=== PATIENT | male | born 1990 | race Hispanic/Latino ===

== ENCOUNTER 2023-01-19 11:25 | Inpatient (IN) | payer OTHER ==
[~2023-01-19] VITALS: Ht 172.7 cm; Wt 60.2 kg
[2023-01-19 12:29] LABS: BASOPHILS % (AUTO) 0.5 % (0.0-5.0); EOSINOPHILS % (AUTO) 0.9 % (0.0-8.0); HEMATOCRIT 32.8 % (42-54); LYMPHOCYTES % (AUTO) 7.8 % (21.0-51.0); MEAN CORPUSCULAR HEMOGLOBIN 30.9 pg (27.0-33.0); MEAN CORPUSCULAR HGB CONC 35.1 g/dL (32.0-36.0); MEAN CORPUSCULAR VOLUME 88.2 fL (79-99); MONOCYTES % (AUTO) 5.1 % (3.0-13.0); NUCLEATED RED BLOOD CELLS 0.1 % (0.0-0.19); PLATELET COUNT (AUTO) 486 K/uL (130-400); RED BLOOD CELL COUNT(AUTO) 3.72 MIL/uL (4.50-6.20); RED CELL DISTRIBUTION WIDTH 14.9 % (11.0-15.5)
[2023-01-19] MEDS ORDERED: ONDANSETRON 4MG INJ IVP ONE ×2 (12:30→15:30)
[2023-01-19] MEDS ORDERED: 0.9%NACL 1000ML 1,000 ML IV ONE (12:30)
[2023-01-19 13:06] LABS: ALANINE AMINOTRANSFERASE 39 U/L (12-78); ALBUMIN 1.7 g/dL (3.5-5.0); ASPARTATE AMINOTRANSFERASE 262 U/L (10-37); CARBON DIOXIDE 35 mmol/L (21-32); CREATININE 0.6 mg/dL (0.5-1.5); GLOMERULAR FILTR. RATE CALC 133 mL/min (>90); GLUCOSE,RANDOM 95 mg/dL (70-105)
[2023-01-19 13:13] LABS: CHLORIDE 96 mmol/L (101-111); POTASSIUM 3.4 mmol/L (3.5-5.1); SODIUM SERUM 137 mmol/L (136-145)
[2023-01-19 13:22] LABS: LIPASE < 50 U/L (114-286)
[2023-01-19 13:24] LABS: UREA NITROGEN, BLOOD 1 mg/dL (7-18)
[2023-01-19] MEDS ORDERED: IOHEXOL 350 MG/ML 100ML INFUS..BTL IV ONE (13:33)
[2023-01-19] MEDS ORDERED: MORPHINE 4 MG SYG IVP ONE (15:30)
[2023-01-19] MEDS ORDERED: POTASSIUM CHLORIDE 20MEQ/100ML 100 ML IV PRN (16:30)
[2023-01-19] MEDS ORDERED: CEFTRIAXONE 1G VIAL 2 GM in 0.9%NACL 100ML 100 ML IV SCH (16:30)
[2023-01-19] MEDS ORDERED: ACETAMINOPHEN 325 MG TAB PO PRN (16:30)
[2023-01-19] MEDS ORDERED: PHARMACY COMMUNICATION MISC PRN (16:30)
[2023-01-19] MEDS ORDERED: PHARMACY COMMUNICATION MISC SCH (16:30)
[2023-01-19 16:54] LABS: INR 1.28 (0.85-1.15); PROTHROMBIN TIME 13.8 SEC (9.6-11.6)
[2023-01-19 16:55] LABS: PARTIAL THROMBOPLASTIN TIME 36.7 SEC (26.3-35.5)
[2023-01-19 17:28] LABS: APPEARANCE,URINE CLEAR (CLEAR); BILIRUBIN,URINE 0.5 mg/dL (NEGATIVE); COLOR,URINE YELLOW (YELLOW); GLUCOSE, URINE (UA) NEGATIVE (NEGATIVE); KETONES,URINE NEGATIVE (NEGATIVE); LEUKOCYTE ESTERASE ,URINE NEGATIVE Leu/uL (NEGATIVE); NITRATE,URINE NEGATIVE (NEGATIVE); OCCULT BLOOD,URINE NEGATIVE (NEGATIVE); PH,URINE 8.5 (5.0-8.0); PROTEIN,URINE 30 mg/dL (NEGATIVE)
[2023-01-19 17:32] LABS: RBC,URINE 0-1 /HPF (0-1); WBC,URINE 0-1 /HPF (0-1)
[2023-01-19] MEDS: METRONIDAZOLE 500MG/100ML BAG 100 ML IV SCH ×2 (17:36→23:36)
[2023-01-19] MEDS: CEFTRIAXONE 2GM VIAL IVPB SCH (17:36)
[2023-01-19] MEDS: 0.9%NACL 1000ML 1,000 ML IV SCH ×2 (17:36→23:37)
[2023-01-19 17:45] LABS: AMPHET/METH SCREEN,URINE NEGATIVE (NEGATIVE); BARBITURATE SCREEN, URINE NEGATIVE (NEGATIVE); BENZODIAZEPINES SCREEN,URINE NEGATIVE (NEGATIVE); CANNABINOID SCREEN,URINE NEGATIVE (NEGATIVE); COCAINE SCREEN,URINE POSITIVE (NEGATIVE); OPIATE SCREEN,URINE POSITIVE (NEGATIVE); PHENCYCLIDINE SCREEN,URINE NEGATIVE (NEGATIVE)
[2023-01-19] MEDS ORDERED: MORPHINE 2 MG SYG IVP STA (19:59)
[2023-01-19] MEDS ORDERED: MORPHINE 2 MG SYG ONE (20:02)
[2023-01-19] MEDS: FAMOTIDINE 20MG VIAL IV SCH (20:21)
[2023-01-19] MEDS ORDERED: 0.9% NACL 500ML IV.SOLN 500 ML IV ONE (20:51)
[2023-01-19 22:50] VITALS: BP 107/73
[2023-01-19] MEDS: CHLORDIAZEPOXIDE HCL 25 MG CAP PO PRN (23:36)
[2023-01-20] VITALS: BP 105/64
[2023-01-20] MEDS: LORAZEPAM 2 MG/ML 1 ML VIAL IVP PRN ×3 (03:08→22:25)
[2023-01-20 04:00] VITALS: BP 97/59
[2023-01-20 07:10] VITALS: BP 99/65
[2023-01-20 08:04] LABS: MEAN CORPUSCULAR HEMOGLOBIN 30.6 pg (27.0-33.0); MEAN CORPUSCULAR HGB CONC 32.9 g/dL (32.0-36.0); MEAN CORPUSCULAR VOLUME 93.1 fL (79-99); NUCLEATED RED BLOOD CELLS 0.2 % (0.0-0.19); RED BLOOD CELL COUNT(AUTO) 3.33 MIL/uL (4.50-6.20); RED CELL DISTRIBUTION WIDTH 15.5 % (11.0-15.5); WHITE BLOOD COUNT (AUTO) 26.5 K/uL (4.8-10.8)
[2023-01-20 08:25] LABS: ALBUMIN 1.4 g/dL (3.5-5.0); CREATININE 0.6 mg/dL (0.5-1.5); MAGNESIUM 1.4 mg/dL (1.80-2.40); POTASSIUM 3.6 mmol/L (3.5-5.1)
[2023-01-20] MEDS ORDERED: KCL 20 MEQ ERTAB PO ONE (09:30)
[2023-01-20] MEDS: METRONIDAZOLE 500MG/100ML BAG 100 ML IV SCH ×3 (10:34→23:28)
[2023-01-20] MEDS: FAMOTIDINE 20MG VIAL IV SCH ×2 (10:35→20:03)
[2023-01-20] MEDS: FLUCONAZOLE 200 MG/NS 100 ML 100 ML IV SCH (10:35)
[2023-01-20] MEDS: MAGNESIUM 2GM PREMIX 50ML 50 ML IV SCH (10:40)
[2023-01-20 11:10] VITALS: BP 108/70
[2023-01-20] MEDS: CHLORDIAZEPOXIDE HCL 25 MG CAP PO PRN (13:01)
[2023-01-20] MEDS: MORPHINE 2 MG SYG IVP PRN (13:02)
[2023-01-20] MEDS: 0.9%NACL 1000ML 1,000 ML IV SCH ×2 (13:03→20:03)
[2023-01-20 15:10] VITALS: BP 106/69
[2023-01-20] MEDS: CEFTRIAXONE 2GM VIAL IVPB SCH (17:29)
[2023-01-20 20:00] VITALS: BP 107/68
[2023-01-21 00:01] VITALS: BP 106/71
[2023-01-21 04:00] VITALS: BP 107/71
[2023-01-21 04:42] LABS: HEMATOCRIT 31.4 % (42-54); MEAN CORPUSCULAR HEMOGLOBIN 30.5 pg (27.0-33.0); MEAN CORPUSCULAR HGB CONC 33.4 g/dL (32.0-36.0); MEAN CORPUSCULAR VOLUME 91.3 fL (79-99); NUCLEATED RED BLOOD CELLS 0.3 % (0.0-0.19); RED BLOOD CELL COUNT(AUTO) 3.44 MIL/uL (4.50-6.20); RED CELL DISTRIBUTION WIDTH 15.6 % (11.0-15.5); WHITE BLOOD COUNT (AUTO) 25.9 K/uL (4.8-10.8)
[2023-01-21 05:01] LABS: ALBUMIN 1.4 g/dL (3.5-5.0); BILIRUBIN,DIRECT 1.6 mg/dL (0.0-0.3); CREATININE 0.6 mg/dL (0.5-1.5); MAGNESIUM 1.9 mg/dL (1.80-2.40); TOTAL PROTEIN, SERUM 6.1 g/dL (6.0-8.3)
[2023-01-21 07:10] VITALS: BP 100/63
[2023-01-21] MEDS: FAMOTIDINE 20MG VIAL IV SCH ×2 (08:19→19:42)
[2023-01-21] MEDS: 0.9%NACL 1000ML 1,000 ML IV SCH ×2 (08:19→19:43)
[2023-01-21] MEDS: FLUCONAZOLE 200 MG/NS 100 ML 100 ML IV SCH (08:19)
[2023-01-21] MEDS: METRONIDAZOLE 500MG/100ML BAG 100 ML IV SCH (08:19)
[2023-01-21 11:10] VITALS: BP 111/65
[2023-01-21 15:25] VITALS: BP 109/61
[2023-01-21] MEDS: MEROPENEM 500 MG VIAL IVPB SCH ×2 (16:00→22:05)
[2023-01-21] MEDS: ONDANSETRON 4MG INJ IV PRN (16:46)
[2023-01-21 20:00] VITALS: BP 105/67
[2023-01-21] MEDS: MORPHINE 2 MG SYG IVP PRN (20:46)
[2023-01-21] MEDS: LORAZEPAM 2 MG/ML 1 ML VIAL IVP PRN (22:05)
[2023-01-22] VITALS: BP 90/60
[2023-01-22 04:00] VITALS: BP 101/72
[2023-01-22] MEDS: 0.9%NACL 1000ML 1,000 ML IV SCH ×2 (04:03→15:47)
[2023-01-22] MEDS: LORAZEPAM 2 MG/ML 1 ML VIAL IVP PRN (04:03)
[2023-01-22 04:44] LABS: HEMATOCRIT 30.5 % (42-54); MEAN CORPUSCULAR HEMOGLOBIN 30.6 pg (27.0-33.0); MEAN CORPUSCULAR HGB CONC 33.4 g/dL (32.0-36.0); MEAN CORPUSCULAR VOLUME 91.6 fL (79-99); NUCLEATED RED BLOOD CELLS 0.4 % (0.0-0.19); RED BLOOD CELL COUNT(AUTO) 3.33 MIL/uL (4.50-6.20); RED CELL DISTRIBUTION WIDTH 15.8 % (11.0-15.5); WHITE BLOOD COUNT (AUTO) 25.1 K/uL (4.8-10.8)
[2023-01-22 05:07] LABS: ALBUMIN 1.4 g/dL (3.5-5.0); CREATININE 0.6 mg/dL (0.5-1.5); MAGNESIUM 1.8 mg/dL (1.80-2.40); POTASSIUM 3.9 mmol/L (3.5-5.1); TOTAL PROTEIN, SERUM 5.8 g/dL (6.0-8.3)
[2023-01-22] MEDS: MEROPENEM 500 MG VIAL IVPB SCH ×3 (06:05→23:16)
[2023-01-22 07:05] VITALS: BP 97/56
[2023-01-22 08:17] LABS: INR 1.51 (0.85-1.15); PROTHROMBIN TIME 16.1 SEC (9.6-11.6)
[2023-01-22 08:19] LABS: PARTIAL THROMBOPLASTIN TIME 36.2 SEC (26.3-35.5)
[2023-01-22] MEDS: FLUCONAZOLE 200 MG/NS 100 ML 100 ML IV SCH (08:19)
[2023-01-22] MEDS: FAMOTIDINE 20MG VIAL IV SCH ×2 (08:19→20:30)
[2023-01-22] MEDS: MAGNESIUM 2GM PREMIX 50ML 50 ML IV SCH (09:11)
[2023-01-22 11:00] VITALS: BP 100/66
[2023-01-22 15:00] VITALS: BP 96/64
[2023-01-22] MEDS: MORPHINE 2 MG SYG IVP PRN (19:37)
[2023-01-22 20:00] VITALS: BP 112/72
[2023-01-22] MEDS: CHLORDIAZEPOXIDE HCL 25 MG CAP PO PRN (20:37)
[2023-01-23] VITALS: BP 89/58
[2023-01-23] MEDS: CHLORDIAZEPOXIDE HCL 25 MG CAP PO PRN ×3 (00:11→21:17)
[2023-01-23] MEDS: 0.9%NACL 1000ML 1,000 ML IV SCH ×3 (03:07→21:09)
[2023-01-23 04:00] VITALS: BP 114/70
[2023-01-23] MEDS: MEROPENEM 500 MG VIAL IVPB SCH ×3 (07:24→22:31)
[2023-01-23 08:00] VITALS: BP 109/71
[2023-01-23] MEDS: FAMOTIDINE 20MG VIAL IV SCH ×2 (08:30→20:23)
[2023-01-23] MEDS: MORPHINE 2 MG SYG IVP PRN ×2 (08:30→19:37)
[2023-01-23] MEDS: FLUCONAZOLE 200 MG/NS 100 ML 100 ML IV SCH (08:30)
[2023-01-23 11:51] VITALS: BP 103/64
[2023-01-23 16:00] VITALS: BP 110/70
[2023-01-23 20:00] VITALS: BP 120/77
[2023-01-24] VITALS: BP 99/60
[2023-01-24 04:05] VITALS: BP 101/66
[2023-01-24 04:55] LABS: BASOPHILS % (AUTO) 0.7 % (0.0-5.0); EOSINOPHILS % (AUTO) 2.9 % (0.0-8.0); HEMATOCRIT 32.2 % (42-54); LYMPHOCYTES % (AUTO) 12.6 % (21.0-51.0); MEAN CORPUSCULAR HEMOGLOBIN 30.2 pg (27.0-33.0); MEAN CORPUSCULAR HGB CONC 33.2 g/dL (32.0-36.0); MONOCYTES % (AUTO) 8.3 % (3.0-13.0); NEUTROPHILS % (AUTO) 74.6 % (40.0-77.0); NUCLEATED RED BLOOD CELLS 0.2 % (0.0-0.19); PLATELET COUNT (AUTO) 547 K/uL (130-400); RED BLOOD CELL COUNT(AUTO) 3.54 MIL/uL (4.50-6.20); RED CELL DISTRIBUTION WIDTH 15.8 % (11.0-15.5); WHITE BLOOD COUNT (AUTO) 24.8 K/uL (4.8-10.8)
[2023-01-24 05:24] LABS: ALANINE AMINOTRANSFERASE 27 U/L (12-78); ALBUMIN 1.4 g/dL (3.5-5.0); ASPARTATE AMINOTRANSFERASE 152 U/L (10-37); CARBON DIOXIDE 21 mmol/L (21-32); CHLORIDE 106 mmol/L (101-111); CREATININE 0.6 mg/dL (0.5-1.5); GLOMERULAR FILTR. RATE CALC 133 mL/min (>90); GLUCOSE,RANDOM 84 mg/dL (70-105); PHOSPHORUS 3.3 mg/dL (2.5-4.9); POTASSIUM 3.8 mmol/L (3.5-5.1); SODIUM SERUM 136 mmol/L (136-145); TOTAL PROTEIN, SERUM 5.9 g/dL (6.0-8.3); UREA NITROGEN, BLOOD 2 mg/dL (7-18)
[2023-01-24 05:29] LABS: LIPASE < 50 U/L (114-286)
[2023-01-24] MEDS: 0.9%NACL 1000ML 1,000 ML IV SCH (05:35)
[2023-01-24] MEDS: MAGNESIUM 2GM PREMIX 50ML 50 ML IV SCH (05:38)
[2023-01-24] MEDS: MEROPENEM 500 MG VIAL IVPB SCH ×3 (07:20→23:26)
[2023-01-24 08:00] VITALS: BP 122/75
[2023-01-24] MEDS ORDERED: KCL 20 MEQ ERTAB PO ONE ×2 (08:32→11:31)
[2023-01-24] MEDS: FAMOTIDINE 20MG VIAL IV SCH ×2 (08:35→20:46)
[2023-01-24] MEDS: FLUCONAZOLE 200 MG/NS 100 ML 100 ML IV SCH (08:35)
[2023-01-24] MEDS: MORPHINE 2 MG SYG IVP PRN ×2 (08:36→18:42)
[2023-01-24] MEDS: CHLORDIAZEPOXIDE HCL 25 MG CAP PO PRN ×4 (09:01→20:46)
[2023-01-24] MEDS ORDERED: FUROSEMIDE 40MG VIAL IV ONE (11:00)
[2023-01-24] MEDS ORDERED: GUAIFENESIN/DEXTROMETHORPHAN 1 EACH TAB.SR.12H PO PRN (11:00)
[2023-01-24] MEDS: ACETAMINOPHEN 325 MG TAB PO PRN (11:29)
[2023-01-24] MEDS: BENZONATATE 100 MG CAPSULE PO PRN (11:29)
[2023-01-24 12:00] VITALS: BP 119/78
[2023-01-24] MEDS ORDERED: PHARMACY COMMUNICATION MISC SCH (12:00)
[2023-01-24] MEDS ORDERED: ALBUMIN (HUMAN) 25% 50 ML IV SCH (13:00)
[2023-01-24 16:00] VITALS: BP 125/71
[2023-01-24 20:00] VITALS: BP 104/78
[2023-01-25] VITALS (14 sets, daily range): BP systolic 99–151; BP diastolic 58–85
[2023-01-25 04:58] LABS: BASOPHILS % (AUTO) 0.7 % (0.0-5.0); EOSINOPHILS % (AUTO) 2.9 % (0.0-8.0); HEMATOCRIT 31.7 % (42-54); LYMPHOCYTES % (AUTO) 14.5 % (21.0-51.0); MEAN CORPUSCULAR HEMOGLOBIN 30.7 pg (27.0-33.0); MEAN CORPUSCULAR HGB CONC 33.8 g/dL (32.0-36.0); MEAN CORPUSCULAR VOLUME 91.1 fL (79-99); MONOCYTES % (AUTO) 9.7 % (3.0-13.0); NEUTROPHILS % (AUTO) 71.5 % (40.0-77.0); NUCLEATED RED BLOOD CELLS 0.1 % (0.0-0.19); PLATELET COUNT (AUTO) 601 K/uL (130-400); RED BLOOD CELL COUNT(AUTO) 3.48 MIL/uL (4.50-6.20)
[2023-01-25 05:14] LABS: ALBUMIN 1.6 g/dL (3.5-5.0); CREATININE 0.5 mg/dL (0.5-1.5); POTASSIUM 3.8 mmol/L (3.5-5.1); TOTAL PROTEIN, SERUM 6.4 g/dL (6.0-8.3)
[2023-01-25] MEDS: MEROPENEM 500 MG VIAL IVPB SCH ×3 (06:16→21:24)
[2023-01-25] MEDS: FAMOTIDINE 20MG VIAL IV SCH ×2 (09:19→21:17)
[2023-01-25] MEDS: MORPHINE 2 MG SYG IVP PRN (09:20)
[2023-01-25] MEDS: MAGNESIUM 2GM PREMIX 50ML 50 ML IV SCH (09:20)
[2023-01-25] MEDS: FLUCONAZOLE 200 MG/NS 100 ML 100 ML IV SCH (09:20)
[2023-01-25] MEDS: CHLORDIAZEPOXIDE HCL 25 MG CAP PO PRN (13:24)
[2023-01-25 13:34] LABS: BODY FLUID RBC 0 /cu. mm.; BODY FLUID WBC 308 /cu. mm.
[2023-01-25 13:49] LABS: APPEARANCE BODY FLUID CLEAR (CLEAR); COLOR,BODY FLUID YELLOW (LT YELLOW); SPECIMENTYPE,BODY FLUID ASCITES; TOTAL VOLUME,BODY FLUID 3100 mL
[2023-01-25] MEDS: ACETAMINOPHEN 325 MG TAB PO PRN (14:15)
[2023-01-25 15:31] LABS: BF LYMPHOCYTE 15 %
[2023-01-25] MEDS ORDERED: KCL 20 MEQ ERTAB PO ONE (16:46)
[2023-01-25] MEDS: LORAZEPAM 2 MG/ML 1 ML VIAL IVP PRN (21:23)
[2023-01-26] VITALS (7 sets, daily range): BP systolic 100–115; BP diastolic 57–67
[2023-01-26] MEDS: CHLORDIAZEPOXIDE HCL 25 MG CAP PO PRN (05:05)
[2023-01-26 05:07] LABS: BASOPHILS % (AUTO) 0.7 % (0.0-5.0); EOSINOPHILS % (AUTO) 2.5 % (0.0-8.0); HEMATOCRIT 31.5 % (42-54); LYMPHOCYTES % (AUTO) 13.6 % (21.0-51.0); MEAN CORPUSCULAR HEMOGLOBIN 30.8 pg (27.0-33.0); MEAN CORPUSCULAR HGB CONC 33.7 g/dL (32.0-36.0); MEAN CORPUSCULAR VOLUME 91.6 fL (79-99); MONOCYTES % (AUTO) 8.8 % (3.0-13.0); NEUTROPHILS % (AUTO) 73.8 % (40.0-77.0); NUCLEATED RED BLOOD CELLS 0.1 % (0.0-0.19); PLATELET COUNT (AUTO) 643 K/uL (130-400); RED BLOOD CELL COUNT(AUTO) 3.44 MIL/uL (4.50-6.20); RED CELL DISTRIBUTION WIDTH 16.1 % (11.0-15.5); WHITE BLOOD COUNT (AUTO) 25.4 K/uL (4.8-10.8)
[2023-01-26 05:32] LABS: ALBUMIN 1.4 g/dL (3.5-5.0); CREATININE 0.6 mg/dL (0.5-1.5); POTASSIUM 4.1 mmol/L (3.5-5.1); TOTAL PROTEIN, SERUM 5.9 g/dL (6.0-8.3)
[2023-01-26] MEDS: MEROPENEM 500 MG VIAL IVPB SCH ×3 (06:40→22:49)
[2023-01-26] MEDS: FLUCONAZOLE 200 MG/NS 100 ML 100 ML IV SCH (08:44)
[2023-01-26] MEDS: FAMOTIDINE 20MG VIAL IV SCH ×2 (08:44→21:07)
[2023-01-26] MEDS: ACETAMINOPHEN 325 MG TAB PO PRN (09:54)
[2023-01-26 13:34] LABS: INR 1.34 (0.85-1.15); PROTHROMBIN TIME 14.4 SEC (9.6-11.6)
[2023-01-27] VITALS (32 sets, daily range): BP systolic 95–127; BP diastolic 57–92
[2023-01-27 05:58] LABS: INR 1.32 (0.85-1.15); PROTHROMBIN TIME 14.2 SEC (9.6-11.6)
[2023-01-27] MEDS: MEROPENEM 500 MG VIAL IVPB SCH ×3 (06:43→22:50)
[2023-01-27] MEDS: FAMOTIDINE 20MG VIAL IV SCH ×2 (09:04→20:00)
[2023-01-27] MEDS: FLUCONAZOLE 200 MG/NS 100 ML 100 ML IV SCH (09:04)
[2023-01-27] MEDS ORDERED: INDOCYANINE GREEN 25 MG VIAL IJ ONE (13:09)
[2023-01-27] MEDS ORDERED: LIDOCAINE PF 100MG/5ML (2%) SYRINGE 5ML ONE (14:13)
[2023-01-27] MEDS ORDERED: FENTANYL CITRATE PF 50 MCG/1 ML 5ML AMP IV ONE (14:16)
[2023-01-27] MEDS ORDERED: MIDAZOLAM HCL 1 MG/ML 2ML VIAL ONE (14:16)
[2023-01-27] MEDS ORDERED: ROCURONIUM 10MG/1ML SYR 10 MG/ML ML ONE ×2 (14:16→15:09)
[2023-01-27] MEDS ORDERED: PROPOFOL 10 MG/ML 20ML VIAL IV ONE (14:16)
[2023-01-27] MEDS ORDERED: ROPIVACAINE 0.5% 5MG/ML 30ML IJ ONE ×2 (14:38→14:40)
[2023-01-27] MEDS ORDERED: MEROPENEM 500 MG VIAL IVPB ONE (15:00)
[2023-01-27] MEDS ORDERED: DEXAMETHASONE SOD PHOSPHATE 10MG/ML 1ML VIAL ONE (15:09)
[2023-01-27] MEDS ORDERED: ONDANSETRON 4MG INJ ONE (15:09)
[2023-01-27] MEDS ORDERED: ALBUMIN (HUMAN) 5% 500 ML IV ONE (15:32)
[2023-01-27] MEDS ORDERED: NEOSTIGMINE 5MG/5ML SYR IV ONE (16:19)
[2023-01-27] MEDS ORDERED: GLYCOPYRROLATE 1 MG/5 ML SYRINGE ONE (16:19)
[2023-01-27] MEDS ORDERED: SUGAMMADEX SODIUM 200 MG/2 ML VIAL IV ONE (16:26)
[2023-01-27] MEDS ORDERED: MEPERIDINE-PF 25 MG/ML SYG ONE (17:25)
[2023-01-27] MEDS: ONDANSETRON 4MG INJ IV PRN (17:30)
[2023-01-27] MEDS ORDERED: FENTANYL CITRATE PF 50 MCG/1 ML 2ML VIAL ONE (17:33)
[2023-01-27] MEDS ORDERED: FUROSEMIDE 40MG VIAL IV ONE (19:30)
[2023-01-27] MEDS: TRAMADOL HCL 50 MG TABLET PO SCH (20:01)
[2023-01-27] MEDS: DOCUSATE SODIUM 100 MG CAP PO SCH (20:03)
[2023-01-27] MEDS: MORPHINE 4 MG SYG IVP PRN (20:04)
[2023-01-27] MEDS: GABAPENTIN 100 MG CAPSULE PO SCH (20:04)
[2023-01-28] VITALS (8 sets, daily range): BP systolic 103–121; BP diastolic 71–80
[2023-01-28] MEDS: TRAMADOL HCL 50 MG TABLET PO SCH ×5 (00:47→23:04)
[2023-01-28] MEDS: ONDANSETRON 4MG INJ IV PRN (03:13)
[2023-01-28] MEDS: MORPHINE 4 MG SYG IVP PRN ×3 (03:13→23:06)
[2023-01-28 06:15] LABS: ALBUMIN 1.9 g/dL (3.5-5.0); CREATININE 0.6 mg/dL (0.5-1.5); MAGNESIUM 1.6 mg/dL (1.80-2.40); PHOSPHORUS 5.8 mg/dL (2.5-4.9); POTASSIUM 4.9 mmol/L (3.5-5.1); TOTAL PROTEIN, SERUM 7.1 g/dL (6.0-8.3)
[2023-01-28] MEDS: MEROPENEM 500 MG VIAL IVPB SCH ×3 (06:15→23:03)
[2023-01-28 06:45] LABS: BASOPHILS % (AUTO) 0.2 % (0.0-5.0); HEMATOCRIT 34.1 % (42-54); LYMPHOCYTES % (AUTO) 6.3 % (21.0-51.0); MEAN CORPUSCULAR HEMOGLOBIN 30.8 pg (27.0-33.0); MEAN CORPUSCULAR HGB CONC 33.7 g/dL (32.0-36.0); MEAN CORPUSCULAR VOLUME 91.4 fL (79-99); MONOCYTES % (AUTO) 3.6 % (3.0-13.0); RED BLOOD CELL COUNT(AUTO) 3.73 MIL/uL (4.50-6.20)
[2023-01-28 06:53] LABS: WHITE BLOOD COUNT (AUTO) 37.2 K/uL (4.8-10.8)
[2023-01-28 06:54] LABS: PLATELET COUNT (AUTO) 954 K/uL (130-400)
[2023-01-28] MEDS: DOCUSATE SODIUM 100 MG CAP PO SCH ×3 (08:57→20:05)
[2023-01-28] MEDS: FAMOTIDINE 20MG VIAL IV SCH ×2 (08:59→20:05)
[2023-01-28] MEDS: GABAPENTIN 100 MG CAPSULE PO SCH ×3 (08:59→20:05)
[2023-01-28] MEDS: FLUCONAZOLE 200 MG/NS 100 ML 100 ML IV SCH (08:59)
[2023-01-28 09:58] LABS: BAND NEUTROPHILS % (MANUAL) 3 % (0-2); LYMPHOCYTES % (MANUAL) 5 % (22-44); MAN.DIFF COMMENT-IMPRESSION MANUAL DIFFERENTIAL; MONOCYTES % (MANUAL) 6 % (2-9); PLATELET MORPHOLOGY COMMENT ADEQUATE; REACTIVE LYMPHOCYTES 1 % (0-0); SEGMENTED NEUTROPHILS % 85 % (40-70)
[2023-01-28] MEDS: MAGNESIUM 2GM PREMIX 50ML 50 ML IV SCH (12:06)
[2023-01-29 04:00] VITALS: BP 102/73
[2023-01-29 04:44] LABS: BASOPHILS % (AUTO) 0.2 % (0.0-5.0); EOSINOPHILS % (AUTO) 0.1 % (0.0-8.0); LYMPHOCYTES % (AUTO) 7.1 % (21.0-51.0); MEAN CORPUSCULAR HEMOGLOBIN 30.9 pg (27.0-33.0); MEAN CORPUSCULAR HGB CONC 33.5 g/dL (32.0-36.0); MONOCYTES % (AUTO) 4.3 % (3.0-13.0); NEUTROPHILS % (AUTO) 87.2 % (40.0-77.0); NUCLEATED RED BLOOD CELLS 0.1 % (0.0-0.19); RED BLOOD CELL COUNT(AUTO) 3.37 MIL/uL (4.50-6.20); RED CELL DISTRIBUTION WIDTH 15.8 % (11.0-15.5)
[2023-01-29 04:48] LABS: PLATELET COUNT (AUTO) 913 K/uL (130-400)
[2023-01-29 05:09] LABS: ALBUMIN 1.9 g/dL (3.5-5.0); CREATININE 0.6 mg/dL (0.5-1.5); POTASSIUM 4.2 mmol/L (3.5-5.1); TOTAL PROTEIN, SERUM 6.9 g/dL (6.0-8.3)
[2023-01-29] MEDS: MEROPENEM 500 MG VIAL IVPB SCH ×3 (06:09→22:50)
[2023-01-29] MEDS: TRAMADOL HCL 50 MG TABLET PO SCH ×3 (06:09→18:19)
[2023-01-29 08:00] VITALS: BP 108/78
[2023-01-29] MEDS ORDERED: VANCOMYCIN PROTOCOL PER PHARMACY IV SCH (08:00)
[2023-01-29] MEDS ORDERED: VANCOMYCIN 1G/250ML KIT 250 ML IV SCH (08:19)
[2023-01-29] MEDS: FAMOTIDINE 20MG VIAL IV SCH ×2 (10:17→20:22)
[2023-01-29] MEDS: DOCUSATE SODIUM 100 MG CAP PO SCH ×3 (10:17→20:22)
[2023-01-29] MEDS: GABAPENTIN 100 MG CAPSULE PO SCH ×3 (10:17→20:22)
[2023-01-29] MEDS ORDERED: PHARMACY COMMUNICATION MISC SCH ×2 (11:30→15:30)
[2023-01-29 11:55] VITALS: BP 107/74
[2023-01-29] MEDS ORDERED: LACTATED RINGERS 1000ML 1,000 ML IV SCH ×2 (14:50→15:00)
[2023-01-29] MEDS ORDERED: ALBUMIN (HUMAN) 5% 250 ML IV ONE (15:00)
[2023-01-29 16:00] VITALS: BP 110/65
[2023-01-29 19:00] VITALS: BP 119/61
[2023-01-29] MEDS: VANCOMYCIN 1G/250ML KIT 250 ML IV SCH (20:21)
[2023-01-29 23:00] VITALS: BP 103/60
[2023-01-30] MEDS: TRAMADOL HCL 50 MG TABLET PO SCH ×3 (00:22→12:30)
[2023-01-30 04:04] LABS: BASOPHILS % (AUTO) 0.6 % (0.0-5.0); EOSINOPHILS % (AUTO) 1.1 % (0.0-8.0); MEAN CORPUSCULAR HEMOGLOBIN 30.9 pg (27.0-33.0); MEAN CORPUSCULAR HGB CONC 34.1 g/dL (32.0-36.0); MEAN CORPUSCULAR VOLUME 90.6 fL (79-99); MONOCYTES % (AUTO) 4.3 % (3.0-13.0); NEUTROPHILS % (AUTO) 82.1 % (40.0-77.0); NUCLEATED RED BLOOD CELLS 0.1 % (0.0-0.19); RED BLOOD CELL COUNT(AUTO) 2.98 MIL/uL (4.50-6.20); RED CELL DISTRIBUTION WIDTH 15.4 % (11.0-15.5)
[2023-01-30 04:11] LABS: PLATELET COUNT (AUTO) 840 K/uL (130-400); WHITE BLOOD COUNT (AUTO) 42.2 K/uL (4.8-10.8)
[2023-01-30] MEDS: VANCOMYCIN 1G/250ML KIT 250 ML IV SCH ×3 (04:21→21:51)
[2023-01-30 04:26] LABS: ALBUMIN 1.7 g/dL (3.5-5.0); CREATININE 0.6 mg/dL (0.5-1.5); POTASSIUM 4.2 mmol/L (3.5-5.1); TOTAL PROTEIN, SERUM 6.3 g/dL (6.0-8.3)
[2023-01-30 04:52] LABS: BASOPHILS % (MANUAL) 1 % (0-2); EOSINOPHILS % (MANUAL) 3 % (1-6); LYMPHOCYTES % (MANUAL) 11 % (22-44); MAN.DIFF COMMENT-IMPRESSION MANUAL DIFFERENTIAL; MONOCYTES % (MANUAL) 5 % (2-9); PLATELET MORPHOLOGY COMMENT INCREASED; SEGMENTED NEUTROPHILS % 80 % (40-70)
[2023-01-30] MEDS: MEROPENEM 500 MG VIAL IVPB SCH ×3 (06:09→21:49)
[2023-01-30 08:00] VITALS: BP 104/70
[2023-01-30] MEDS: FAMOTIDINE 20MG VIAL IV SCH ×2 (10:32→21:48)
[2023-01-30] MEDS: MORPHINE 4 MG SYG IVP PRN (10:40)
[2023-01-30 12:00] VITALS: BP 99/70
[2023-01-30] MEDS: DOCUSATE SODIUM 100 MG CAP PO SCH ×2 (14:40→21:48)
[2023-01-30] MEDS: GABAPENTIN 100 MG CAPSULE PO SCH ×2 (14:41→21:48)
[2023-01-30 16:00] VITALS: BP 106/67
[2023-01-30 20:19] VITALS: BP 102/71
[2023-01-30] MEDS ORDERED: PHARMACY COMMUNICATION MISC SCH (21:00)
[2023-01-30] MEDS ORDERED: IRON SUCROSE COMPLEX 300 MG in 0.9% NACL 250ML 250 ML IV ONE (21:00)
[2023-01-30] MEDS: TRAMADOL HCL 50 MG TABLET PO PRN (21:49)
[2023-01-30] MEDS: IRON SUCROSE COMPLEX 100 MG/5 ML VIAL IVP SCH (21:51)
[2023-01-31] VITALS (7 sets, daily range): BP systolic 101–119; BP diastolic 66–82
[2023-01-31 05:03] LABS: HEMATOCRIT 31.6 % (42-54); MEAN CORPUSCULAR HEMOGLOBIN 30.1 pg (27.0-33.0); MEAN CORPUSCULAR HGB CONC 32.9 g/dL (32.0-36.0); MEAN CORPUSCULAR VOLUME 91.6 fL (79-99); NUCLEATED RED BLOOD CELLS 0.1 % (0.0-0.19); RED BLOOD CELL COUNT(AUTO) 3.45 MIL/uL (4.50-6.20); RED CELL DISTRIBUTION WIDTH 15.2 % (11.0-15.5)
[2023-01-31 05:05] LABS: PLATELET COUNT (AUTO) 787 K/uL (130-400); WHITE BLOOD COUNT (AUTO) 31.8 K/uL (4.8-10.8)
[2023-01-31] MEDS: TRAMADOL HCL 50 MG TABLET PO PRN ×3 (05:06→21:47)
[2023-01-31] MEDS: VANCOMYCIN 1G/250ML KIT 250 ML IV SCH ×3 (05:13→23:26)
[2023-01-31 05:23] LABS: INR 1.3 (0.85-1.15)
[2023-01-31 05:27] LABS: BAND NEUTROPHILS % (MANUAL) 1 % (0-2); BASOPHILS % (MANUAL) 3 % (0-2); LYMPHOCYTES % (MANUAL) 8 % (22-44); MAN.DIFF COMMENT-IMPRESSION MANUAL DIFFERENTIAL; MONOCYTES % (MANUAL) 2 % (2-9); SEGMENTED NEUTROPHILS % 86 % (40-70)
[2023-01-31 05:28] LABS: ALBUMIN 1.6 g/dL (3.5-5.0); BILIRUBIN,DIRECT 2.5 mg/dL (0.0-0.3); CREATININE 0.6 mg/dL (0.5-1.5); MAGNESIUM 1.5 mg/dL (1.80-2.40); POTASSIUM 3.9 mmol/L (3.5-5.1); TOTAL PROTEIN, SERUM 6.4 g/dL (6.0-8.3)
[2023-01-31] MEDS: FAMOTIDINE 20MG VIAL IV SCH ×2 (09:59→21:06)
[2023-01-31] MEDS: LACTULOSE 20 GM/30 ML UDCUP PO PRN (10:00)
[2023-01-31] MEDS: GABAPENTIN 100 MG CAPSULE PO SCH ×2 (14:00→21:47)
[2023-01-31] MEDS: MEROPENEM 500 MG VIAL IVPB SCH ×2 (15:12→21:11)
[2023-01-31] MEDS: DOCUSATE SODIUM 100 MG CAP PO SCH ×2 (15:13→21:46)
[2023-01-31] MEDS: IRON SUCROSE COMPLEX 100 MG/5 ML VIAL IVP SCH (21:06)
[2023-02-01 04:38] VITALS: BP 105/72
[2023-02-01] MEDS: VANCOMYCIN 1G/250ML KIT 250 ML IV SCH ×3 (05:46→21:03)
[2023-02-01] MEDS: DOCUSATE SODIUM 100 MG CAP PO SCH ×3 (05:47→19:41)
[2023-02-01] MEDS: GABAPENTIN 100 MG CAPSULE PO SCH ×3 (05:47→19:41)
[2023-02-01] MEDS: MEROPENEM 500 MG VIAL IVPB SCH ×3 (05:47→20:59)
[2023-02-01 08:00] VITALS: BP 105/70
[2023-02-01 08:17] LABS: BASOPHILS % (AUTO) 0.5 % (0.0-5.0); EOSINOPHILS % (AUTO) 2.7 % (0.0-8.0); HEMATOCRIT 31.3 % (42-54); LYMPHOCYTES % (AUTO) 13.1 % (21.0-51.0); MEAN CORPUSCULAR HEMOGLOBIN 30.2 pg (27.0-33.0); MEAN CORPUSCULAR HGB CONC 32.9 g/dL (32.0-36.0); MEAN CORPUSCULAR VOLUME 91.8 fL (79-99); MONOCYTES % (AUTO) 5.5 % (3.0-13.0); NEUTROPHILS % (AUTO) 77.6 % (40.0-77.0); NUCLEATED RED BLOOD CELLS 0.2 % (0.0-0.19); RED BLOOD CELL COUNT(AUTO) 3.41 MIL/uL (4.50-6.20); RED CELL DISTRIBUTION WIDTH 15.3 % (11.0-15.5)
[2023-02-01 08:25] LABS: CREATININE 0.6 mg/dL (0.5-1.5); POTASSIUM 4.1 mmol/L (3.5-5.1)
[2023-02-01 08:29] LABS: ALBUMIN 1.8 g/dL (3.5-5.0); TOTAL PROTEIN, SERUM 6.6 g/dL (6.0-8.3)
[2023-02-01 08:31] LABS: PLATELET COUNT (AUTO) 977 K/uL (130-400); WHITE BLOOD COUNT (AUTO) 31.4 K/uL (4.8-10.8)
[2023-02-01 09:09] LABS: BAND NEUTROPHILS % (MANUAL) 3 % (0-2); BASOPHILS % (MANUAL) 3 % (0-2); EOSINOPHILS % (MANUAL) 3 % (1-6); LYMPHOCYTES % (MANUAL) 17 % (22-44); MONOCYTES % (MANUAL) 3 % (2-9); SEGMENTED NEUTROPHILS % 71 % (40-70)
[2023-02-01 09:10] LABS: MAN.DIFF COMMENT-IMPRESSION MANUAL DIFFERENTIAL; PLATELET MORPHOLOGY COMMENT MARKED INCREASE
[2023-02-01] MEDS: TRAMADOL HCL 50 MG TABLET PO PRN ×2 (09:34→15:18)
[2023-02-01] MEDS: FAMOTIDINE 20MG VIAL IV SCH ×2 (09:34→19:41)
[2023-02-01 12:00] VITALS: BP 100/65
[2023-02-01] MEDS: FLUCONAZOLE 100 MG TAB PO SCH (15:13)
[2023-02-01 16:00] VITALS: BP 103/63
[2023-02-01] MEDS: MORPHINE 4 MG SYG IVP PRN (19:42)
[2023-02-01 20:00] VITALS: BP 105/67
[2023-02-01] MEDS: IRON SUCROSE COMPLEX 100 MG/5 ML VIAL IVP SCH (21:03)
[2023-02-02] VITALS: BP 92/56
[2023-02-02] MEDS: VANCOMYCIN 1G/250ML KIT 250 ML IV SCH ×3 (03:55→20:14)
[2023-02-02 04:00] VITALS: BP 102/66
[2023-02-02] MEDS: DOCUSATE SODIUM 100 MG CAP PO SCH ×3 (05:54→20:43)
[2023-02-02] MEDS: GABAPENTIN 100 MG CAPSULE PO SCH ×3 (05:54→20:43)
[2023-02-02] MEDS: MEROPENEM 500 MG VIAL IVPB SCH ×3 (05:54→20:54)
[2023-02-02 08:13] LABS: BASOPHILS % (AUTO) 0.5 % (0.0-5.0); EOSINOPHILS % (AUTO) 2.8 % (0.0-8.0); LYMPHOCYTES % (AUTO) 12.7 % (21.0-51.0); MEAN CORPUSCULAR HEMOGLOBIN 31.2 pg (27.0-33.0); MEAN CORPUSCULAR HGB CONC 33.9 g/dL (32.0-36.0); MONOCYTES % (AUTO) 5.7 % (3.0-13.0); NEUTROPHILS % (AUTO) 77.3 % (40.0-77.0); NUCLEATED RED BLOOD CELLS 0.8 % (0.0-0.19); RED BLOOD CELL COUNT(AUTO) 3.37 MIL/uL (4.50-6.20); RED CELL DISTRIBUTION WIDTH 15.7 % (11.0-15.5)
[2023-02-02 08:25] LABS: PLATELET COUNT (AUTO) 990 K/uL (130-400); WHITE BLOOD COUNT (AUTO) 34.2 K/uL (4.8-10.8)
[2023-02-02 08:31] LABS: ALBUMIN 1.6 g/dL (3.5-5.0); CREATININE 0.5 mg/dL (0.5-1.5); TOTAL PROTEIN, SERUM 6.2 g/dL (6.0-8.3)
[2023-02-02 09:10] LABS: BAND NEUTROPHILS % (MANUAL) 2 % (0-2); EOSINOPHILS % (MANUAL) 1 % (1-6); LYMPHOCYTES % (MANUAL) 15 % (22-44); MAN.DIFF COMMENT-IMPRESSION MANUAL DIFFERENTIAL; MONOCYTES % (MANUAL) 3 % (2-9); SEGMENTED NEUTROPHILS % 79 % (40-70)
[2023-02-02] MEDS: FAMOTIDINE 20MG VIAL IV SCH ×2 (09:12→20:15)
[2023-02-02] MEDS: TRAMADOL HCL 50 MG TABLET PO PRN ×3 (09:12→23:39)
[2023-02-02 09:16] LABS: PLATELET MORPHOLOGY COMMENT MARKED INCREASE
[2023-02-02 11:23] VITALS: BP 98/60
[2023-02-02] MEDS: HEPARIN 5,000 UNIT VIAL SQ SCH ×2 (11:41→20:54)
[2023-02-02] MEDS: FLUCONAZOLE 100 MG TAB PO SCH (14:41)
[2023-02-02 17:07] VITALS: BP 110/76
[2023-02-02 20:00] VITALS: BP 100/62
[2023-02-02] MEDS ORDERED: DIATR MEGLU/DIATRIZOATE SODIUM 30 ML BOTTLE ONE (20:05)
[2023-02-02] MEDS ORDERED: IOHEXOL 350 MG/ML 100ML INFUS..BTL IV ONE (22:02)
[2023-02-03] VITALS (16 sets, daily range): BP systolic 88–108; BP diastolic 56–76
[2023-02-03] MEDS: VANCOMYCIN 1G/250ML KIT 250 ML IV SCH ×3 (03:56→20:05)
[2023-02-03] MEDS: DOCUSATE SODIUM 100 MG CAP PO SCH ×3 (03:58→22:10)
[2023-02-03] MEDS: GABAPENTIN 100 MG CAPSULE PO SCH ×3 (03:58→22:11)
[2023-02-03 04:44] LABS: HEMATOCRIT 31.7 % (42-54); MEAN CORPUSCULAR HEMOGLOBIN 30.5 pg (27.0-33.0); MEAN CORPUSCULAR HGB CONC 33.4 g/dL (32.0-36.0); MEAN CORPUSCULAR VOLUME 91.4 fL (79-99); NUCLEATED RED BLOOD CELLS 0.8 % (0.0-0.19); RED BLOOD CELL COUNT(AUTO) 3.47 MIL/uL (4.50-6.20); RED CELL DISTRIBUTION WIDTH 16.1 % (11.0-15.5)
[2023-02-03 04:57] LABS: ALBUMIN 1.6 g/dL (3.5-5.0); CREATININE 0.6 mg/dL (0.5-1.5); TOTAL PROTEIN, SERUM 5.9 g/dL (6.0-8.3)
[2023-02-03 05:05] LABS: WHITE BLOOD COUNT (AUTO) 40.3 K/uL (4.8-10.8)
[2023-02-03] MEDS: MEROPENEM 500 MG VIAL IVPB SCH ×3 (05:34→22:11)
[2023-02-03] MEDS: TRAMADOL HCL 50 MG TABLET PO PRN ×3 (08:13→20:07)
[2023-02-03] MEDS: HEPARIN 5,000 UNIT VIAL SQ SCH ×2 (08:33→20:06)
[2023-02-03] MEDS: FAMOTIDINE 20MG VIAL IV SCH ×2 (08:33→20:05)
[2023-02-03] MEDS: FLUCONAZOLE 100 MG TAB PO SCH (13:53)
[2023-02-03 15:22] LABS: ALBUMIN,BODY FLUID 0.8 g/dL
[2023-02-03 15:54] LABS: BODY FLUID RBC 4259 /cu. mm.; BODY FLUID WBC 287 /cu. mm.
[2023-02-03 16:09] LABS: APPEARANCE BODY FLUID SLIGHTLY CLOUDY (CLEAR); COLOR,BODY FLUID YELLOW (LT YELLOW); SPECIMENTYPE,BODY FLUID ASCITES; TOTAL VOLUME,BODY FLUID 1500 mL
[2023-02-03 16:55] LABS: BF LYMPHOCYTE 42 %; BF MESOTHELIAL 1 %
[2023-02-03] MEDS: FOLIC ACID 1 MG TABLET PO SCH (20:05)
[2023-02-03] MEDS: ASPIRIN 81 MG EC TAB PO SCH (20:05)
[2023-02-04] MEDS: TRAMADOL HCL 50 MG TABLET PO PRN ×3 (01:46→19:40)
[2023-02-04] MEDS: VANCOMYCIN 1G/250ML KIT 250 ML IV SCH ×3 (03:50→21:30)
[2023-02-04 04:29] VITALS: BP 91/57
[2023-02-04] MEDS: MEROPENEM 500 MG VIAL IVPB SCH ×2 (05:11→14:43)
[2023-02-04] MEDS: GABAPENTIN 100 MG CAPSULE PO SCH ×3 (05:13→21:31)
[2023-02-04] MEDS: DOCUSATE SODIUM 100 MG CAP PO SCH ×3 (05:13→21:30)
[2023-02-04 08:00] VITALS: BP 103/60
[2023-02-04] MEDS: FAMOTIDINE 20MG VIAL IV SCH ×2 (10:13→19:36)
[2023-02-04] MEDS: HEPARIN 5,000 UNIT VIAL SQ SCH ×2 (10:14→19:34)
[2023-02-04 12:00] VITALS: BP 103/64
[2023-02-04] MEDS: FLUCONAZOLE 100 MG TAB PO SCH (14:43)
[2023-02-04 16:00] VITALS: BP 96/58
[2023-02-04] MEDS: ASPIRIN 81 MG EC TAB PO SCH (19:34)
[2023-02-04] MEDS: FOLIC ACID 1 MG TABLET PO SCH (19:34)
[2023-02-04 19:47] VITALS: BP 93/59
[2023-02-04 22:59] VITALS: BP 90/57
[2023-02-05] MEDS: VANCOMYCIN 1G/250ML KIT 250 ML IV SCH ×3 (04:07→20:01)
[2023-02-05 04:47] VITALS: BP 95/61
[2023-02-05] MEDS: DOCUSATE SODIUM 100 MG CAP PO SCH ×3 (05:19→21:19)
[2023-02-05] MEDS: GABAPENTIN 100 MG CAPSULE PO SCH ×3 (05:19→21:19)
[2023-02-05 08:00] VITALS: BP 99/62
[2023-02-05 09:20] LABS: BASOPHILS % (AUTO) 0.6 % (0.0-5.0); EOSINOPHILS % (AUTO) 2.8 % (0.0-8.0); HEMATOCRIT 33.5 % (42-54); LYMPHOCYTES % (AUTO) 11.1 % (21.0-51.0); MEAN CORPUSCULAR HEMOGLOBIN 30.9 pg (27.0-33.0); MEAN CORPUSCULAR HGB CONC 33.4 g/dL (32.0-36.0); MEAN CORPUSCULAR VOLUME 92.3 fL (79-99); MONOCYTES % (AUTO) 7.1 % (3.0-13.0); NEUTROPHILS % (AUTO) 76.9 % (40.0-77.0); NUCLEATED RED BLOOD CELLS 0.2 % (0.0-0.19); RED BLOOD CELL COUNT(AUTO) 3.63 MIL/uL (4.50-6.20); RED CELL DISTRIBUTION WIDTH 17.1 % (11.0-15.5)
[2023-02-05 09:33] LABS: ALBUMIN 1.4 g/dL (3.5-5.0); CREATININE 0.6 mg/dL (0.5-1.5); CRP QUANTITATIVE 71.8 mg/L (0.00-9.0); POTASSIUM 4.1 mmol/L (3.5-5.1); TOTAL PROTEIN, SERUM 5.7 g/dL (6.0-8.3)
[2023-02-05] MEDS: FAMOTIDINE 20MG VIAL IV SCH ×2 (09:52→20:00)
[2023-02-05] MEDS: ONDANSETRON 4MG INJ IV PRN (09:52)
[2023-02-05] MEDS: HEPARIN 5,000 UNIT VIAL SQ SCH ×2 (09:53→21:23)
[2023-02-05 10:08] LABS: PLATELET COUNT (AUTO) 984 K/uL (130-400); WHITE BLOOD COUNT (AUTO) 35.8 K/uL (4.8-10.8)
[2023-02-05 10:16] LABS: BAND NEUTROPHILS % (MANUAL) 18 % (0-2); EOSINOPHILS % (MANUAL) 3 % (1-6); LYMPHOCYTES % (MANUAL) 12 % (22-44); MAN.DIFF COMMENT-IMPRESSION MANUAL DIFFERENTIAL; MONOCYTES % (MANUAL) 7 % (2-9); SEGMENTED NEUTROPHILS % 60 % (40-70)
[2023-02-05 10:21] LABS: PLATELET MORPHOLOGY COMMENT MARKED INC
[2023-02-05 11:12] LABS: ERYTHROCYTE SEDIMENTATION RATE 12 MM/HR (0-15)
[2023-02-05 12:00] VITALS: BP_SYST 146; BP_SYST 97; BP_DIAS 57; BP_DIAS 79
[2023-02-05] MEDS: TRAMADOL HCL 50 MG TABLET PO PRN ×2 (12:40→20:01)
[2023-02-05 16:00] VITALS: BP 104/65
[2023-02-05] MEDS: FLUCONAZOLE 100 MG TAB PO SCH (16:11)
[2023-02-05 19:57] VITALS: BP 92/53
[2023-02-05] MEDS: FOLIC ACID 1 MG TABLET PO SCH (20:00)
[2023-02-05] MEDS: ASPIRIN 81 MG EC TAB PO SCH (20:00)
[2023-02-05 23:12] VITALS: BP 93/64
[2023-02-05] MEDS: ACETAMINOPHEN 325 MG TAB PO PRN (23:23)
[2023-02-06] MEDS: TRAMADOL HCL 50 MG TABLET PO PRN ×4 (01:52→23:42)
[2023-02-06 04:03] VITALS: BP 91/67
[2023-02-06] MEDS: DOCUSATE SODIUM 100 MG CAP PO SCH ×3 (04:57→21:26)
[2023-02-06] MEDS: GABAPENTIN 100 MG CAPSULE PO SCH ×3 (04:58→21:27)
[2023-02-06] MEDS: VANCOMYCIN 1G/250ML KIT 250 ML IV SCH ×2 (04:58→19:54)
[2023-02-06 08:00] VITALS: BP 102/66
[2023-02-06] MEDS: FAMOTIDINE 20MG VIAL IV SCH ×2 (09:52→21:25)
[2023-02-06] MEDS: HEPARIN 5,000 UNIT VIAL SQ SCH ×2 (09:53→21:26)
[2023-02-06 11:45] VITALS: BP 94/59
[2023-02-06] MEDS: FLUCONAZOLE 100 MG TAB PO SCH (13:59)
[2023-02-06 15:51] VITALS: BP 101/58
[2023-02-06 20:00] VITALS: BP 101/68
[2023-02-06] MEDS: ASPIRIN 81 MG EC TAB PO SCH (21:26)
[2023-02-06] MEDS: FOLIC ACID 1 MG TABLET PO SCH (21:26)
[2023-02-07] VITALS: BP 92/61
[2023-02-07 04:00] VITALS: BP 93/55
[2023-02-07] MEDS: DOCUSATE SODIUM 100 MG CAP PO SCH ×3 (05:19→19:38)
[2023-02-07] MEDS: GABAPENTIN 100 MG CAPSULE PO SCH ×3 (05:19→19:38)
[2023-02-07 08:00] VITALS: BP 106/64
[2023-02-07 08:40] LABS: HEMATOCRIT 34.8 % (42-54); MEAN CORPUSCULAR HEMOGLOBIN 30.6 pg (27.0-33.0); MEAN CORPUSCULAR HGB CONC 32.8 g/dL (32.0-36.0); MEAN CORPUSCULAR VOLUME 93.3 fL (79-99); NUCLEATED RED BLOOD CELLS 0.1 % (0.0-0.19); RED BLOOD CELL COUNT(AUTO) 3.73 MIL/uL (4.50-6.20); RED CELL DISTRIBUTION WIDTH 17.3 % (11.0-15.5)
[2023-02-07 08:44] LABS: CREATININE 0.7 mg/dL (0.5-1.5); POTASSIUM 4.4 mmol/L (3.5-5.1)
[2023-02-07 08:53] LABS: PLATELET COUNT (AUTO) 843 K/uL (130-400); WHITE BLOOD COUNT (AUTO) 38.9 K/uL (4.8-10.8)
[2023-02-07] MEDS: VANCOMYCIN 1G/250ML KIT 250 ML IV SCH ×2 (08:56→20:01)
[2023-02-07] MEDS: FAMOTIDINE 20MG VIAL IV SCH ×2 (08:56→19:38)
[2023-02-07] MEDS: HEPARIN 5,000 UNIT VIAL SQ SCH ×2 (08:57→19:39)
[2023-02-07 10:05] LABS: BASOPHILS % (MANUAL) 1 % (0-2); LYMPHOCYTES % (MANUAL) 7 % (22-44); MAN.DIFF COMMENT-IMPRESSION MANUAL DIFFERENTIAL; MONOCYTES % (MANUAL) 2 % (2-9); PLATELET MORPHOLOGY COMMENT MARKED INCREASE; SEGMENTED NEUTROPHILS % 90 % (40-70)
[2023-02-07] MEDS: TRAMADOL HCL 50 MG TABLET PO PRN ×2 (11:09→19:55)
[2023-02-07 12:00] VITALS: BP 101/63
[2023-02-07] MEDS: FLUCONAZOLE 100 MG TAB PO SCH (14:48)
[2023-02-07 16:00] VITALS: BP 108/65
[2023-02-07] MEDS: FOLIC ACID 1 MG TABLET PO SCH (19:38)
[2023-02-07] MEDS: ASPIRIN 81 MG EC TAB PO SCH (19:38)
[2023-02-07 20:00] VITALS: BP 100/52
[2023-02-08] VITALS (7 sets, daily range): BP systolic 93–117; BP diastolic 52–71
[2023-02-08] MEDS: GABAPENTIN 100 MG CAPSULE PO SCH ×3 (04:27→21:11)
[2023-02-08] MEDS: VANCOMYCIN 1G/250ML KIT 250 ML IV SCH ×2 (04:27→11:49)
[2023-02-08] MEDS: DOCUSATE SODIUM 100 MG CAP PO SCH ×3 (04:27→21:11)
[2023-02-08] MEDS: FAMOTIDINE 20MG VIAL IV SCH ×2 (09:07→21:12)
[2023-02-08] MEDS: TRAMADOL HCL 50 MG TABLET PO PRN ×2 (09:11→21:13)
[2023-02-08] MEDS: HEPARIN 5,000 UNIT VIAL SQ SCH ×2 (09:13→21:12)
[2023-02-08] MEDS: FLUCONAZOLE 100 MG TAB PO SCH (14:26)
[2023-02-08] MEDS: FOLIC ACID 1 MG TABLET PO SCH (21:11)
[2023-02-08] MEDS: ASPIRIN 81 MG EC TAB PO SCH (21:12)
[2023-02-08] MEDS: VANCOMYCIN 750MG VIAL IVPB SCH (21:13)
[2023-02-09] MEDS: VANCOMYCIN 750MG VIAL IVPB SCH ×3 (03:23→21:14)
[2023-02-09 03:56] VITALS: BP 99/60
[2023-02-09 04:27] LABS: BASOPHILS % (AUTO) 0.5 % (0.0-5.0); EOSINOPHILS % (AUTO) 3.7 % (0.0-8.0); HEMATOCRIT 30.6 % (42-54); LYMPHOCYTES % (AUTO) 12.6 % (21.0-51.0); MEAN CORPUSCULAR HEMOGLOBIN 30.9 pg (27.0-33.0); MEAN CORPUSCULAR VOLUME 90.8 fL (79-99); MONOCYTES % (AUTO) 4.5 % (3.0-13.0); NEUTROPHILS % (AUTO) 77.9 % (40.0-77.0); NUCLEATED RED BLOOD CELLS 0.1 % (0.0-0.19); RED BLOOD CELL COUNT(AUTO) 3.37 MIL/uL (4.50-6.20); RED CELL DISTRIBUTION WIDTH 17.1 % (11.0-15.5)
[2023-02-09 04:48] LABS: ALBUMIN 1.4 g/dL (3.5-5.0); CREATININE 0.6 mg/dL (0.5-1.5); POTASSIUM 3.9 mmol/L (3.5-5.1); TOTAL PROTEIN, SERUM 5.5 g/dL (6.0-8.3)
[2023-02-09 05:08] LABS: PLATELET COUNT (AUTO) 762 K/uL (130-400); WHITE BLOOD COUNT (AUTO) 35.9 K/uL (4.8-10.8)
[2023-02-09] MEDS: TRAMADOL HCL 50 MG TABLET PO PRN ×4 (05:47→18:35)
[2023-02-09] MEDS: GABAPENTIN 100 MG CAPSULE PO SCH ×3 (05:47→21:15)
[2023-02-09] MEDS: DOCUSATE SODIUM 100 MG CAP PO SCH ×3 (05:47→21:14)
[2023-02-09 07:54] VITALS: BP 103/61
[2023-02-09] MEDS: FAMOTIDINE 20MG VIAL IV SCH ×2 (09:07→21:14)
[2023-02-09] MEDS: HEPARIN 5,000 UNIT VIAL SQ SCH ×3 (09:14→22:35)
[2023-02-09 11:31] VITALS: BP 107/63
[2023-02-09 12:37] LABS: INR 1.3 (0.85-1.15)
[2023-02-09 12:39] LABS: PARTIAL THROMBOPLASTIN TIME 39.5 SEC (26.3-35.5)
[2023-02-09] MEDS: FLUCONAZOLE 100 MG TAB PO SCH (13:40)
[2023-02-09 15:24] VITALS: BP 100/56
[2023-02-09 21:07] VITALS: BP 103/63
[2023-02-09] MEDS: FOLIC ACID 1 MG TABLET PO SCH (21:14)
[2023-02-09] MEDS: ASPIRIN 81 MG EC TAB PO SCH (21:18)
[2023-02-09 23:29] VITALS: BP 102/68
[2023-02-10] VITALS (13 sets, daily range): BP systolic 95–110; BP diastolic 56–71
[2023-02-10] MEDS: TRAMADOL HCL 50 MG TABLET PO PRN ×4 (00:17→22:46)
[2023-02-10] MEDS: VANCOMYCIN 750MG VIAL IVPB SCH ×2 (04:22→11:53)
[2023-02-10] MEDS: DOCUSATE SODIUM 100 MG CAP PO SCH ×3 (04:24→22:29)
[2023-02-10] MEDS: GABAPENTIN 100 MG CAPSULE PO SCH ×3 (04:24→22:29)
[2023-02-10 04:56] LABS: BASOPHILS % (AUTO) 0.5 % (0.0-5.0); EOSINOPHILS % (AUTO) 3.8 % (0.0-8.0); HEMATOCRIT 31.4 % (42-54); LYMPHOCYTES % (AUTO) 13.1 % (21.0-51.0); MEAN CORPUSCULAR HGB CONC 33.4 g/dL (32.0-36.0); MEAN CORPUSCULAR VOLUME 92.6 fL (79-99); MONOCYTES % (AUTO) 4.3 % (3.0-13.0); NEUTROPHILS % (AUTO) 77.4 % (40.0-77.0); PLATELET COUNT (AUTO) 700 K/uL (130-400); RED BLOOD CELL COUNT(AUTO) 3.39 MIL/uL (4.50-6.20); RED CELL DISTRIBUTION WIDTH 16.8 % (11.0-15.5)
[2023-02-10 04:57] LABS: WHITE BLOOD COUNT (AUTO) 37.9 K/uL (4.8-10.8)
[2023-02-10 05:11] LABS: INR 1.33 (0.85-1.15); PROTHROMBIN TIME 14.3 SEC (9.6-11.6)
[2023-02-10 05:18] LABS: ALBUMIN 1.4 g/dL (3.5-5.0); CREATININE 0.8 mg/dL (0.5-1.5); POTASSIUM 4.2 mmol/L (3.5-5.1); TOTAL PROTEIN, SERUM 5.8 g/dL (6.0-8.3)
[2023-02-10] MEDS: ONDANSETRON 4MG INJ IV PRN (05:49)
[2023-02-10] MEDS: FAMOTIDINE 20MG VIAL IV SCH ×2 (07:53→22:30)
[2023-02-10] MEDS ORDERED: FENTANYL CITRATE PF 50 MCG/1 ML 2ML VIAL ONE (08:38)
[2023-02-10] MEDS ORDERED: LIDOCAINE HCL 1% 20 ML VIAL ONE (10:07)
[2023-02-10] MEDS ORDERED: VANCOMYCIN 500MG+NS 100ML 100 ML IV SCH (12:00)
[2023-02-10] MEDS: FLUCONAZOLE 100 MG TAB PO SCH (14:25)
[2023-02-10] MEDS: FOLIC ACID 1 MG TABLET PO SCH (22:29)
[2023-02-10] MEDS: ASPIRIN 81 MG EC TAB PO SCH (22:29)
[2023-02-10] MEDS: VANCOMYCIN 500MG+NS 100ML 100 ML IV SCH (22:30)
[2023-02-10] MEDS: HEPARIN 5,000 UNIT VIAL SQ SCH (22:44)
[2023-02-11] VITALS: BP 100/60
[2023-02-11 04:00] VITALS: BP 90/54
[2023-02-11 05:27] LABS: BASOPHILS % (AUTO) 0.6 % (0.0-5.0); EOSINOPHILS % (AUTO) 3.7 % (0.0-8.0); HEMATOCRIT 35.3 % (42-54); LYMPHOCYTES % (AUTO) 16.2 % (21.0-51.0); MEAN CORPUSCULAR HEMOGLOBIN 30.8 pg (27.0-33.0); MEAN CORPUSCULAR HGB CONC 33.1 g/dL (32.0-36.0); MEAN CORPUSCULAR VOLUME 92.9 fL (79-99); NEUTROPHILS % (AUTO) 73.7 % (40.0-77.0); PLATELET COUNT (AUTO) 617 K/uL (130-400); RED CELL DISTRIBUTION WIDTH 17.3 % (11.0-15.5)
[2023-02-11] MEDS: GABAPENTIN 100 MG CAPSULE PO SCH ×3 (05:39→20:54)
[2023-02-11] MEDS: DOCUSATE SODIUM 100 MG CAP PO SCH ×3 (05:39→20:53)
[2023-02-11] MEDS: VANCOMYCIN 500MG+NS 100ML 100 ML IV SCH ×3 (05:40→20:50)
[2023-02-11 05:47] LABS: WHITE BLOOD COUNT (AUTO) 36.9 K/uL (4.8-10.8)
[2023-02-11 05:50] LABS: BAND NEUTROPHILS % (MANUAL) 1 % (0-2); EOSINOPHILS % (MANUAL) 6 % (1-6); LYMPHOCYTES % (MANUAL) 12 % (22-44); MAN.DIFF COMMENT-IMPRESSION MANUAL DIFFERENTIAL; MONOCYTES % (MANUAL) 8 % (2-9); PLATELET MORPHOLOGY COMMENT INCREASED; SEGMENTED NEUTROPHILS % 73 % (40-70)
[2023-02-11 05:56] LABS: ALBUMIN 1.5 g/dL (3.5-5.0); CREATININE 0.8 mg/dL (0.5-1.5); POTASSIUM 3.8 mmol/L (3.5-5.1); TOTAL PROTEIN, SERUM 5.9 g/dL (6.0-8.3)
[2023-02-11 08:00] VITALS: BP 96/59
[2023-02-11] MEDS: HEPARIN 5,000 UNIT VIAL SQ SCH ×2 (08:23→20:52)
[2023-02-11] MEDS: FAMOTIDINE 20MG VIAL IV SCH ×2 (08:24→20:50)
[2023-02-11] MEDS: TRAMADOL HCL 50 MG TABLET PO PRN ×3 (09:44→20:51)
[2023-02-11 12:00] VITALS: BP 95/58
[2023-02-11] MEDS: FLUCONAZOLE 100 MG TAB PO SCH (14:10)
[2023-02-11 16:00] VITALS: BP 101/66
[2023-02-11 20:00] VITALS: BP 120/59
[2023-02-11] MEDS: FOLIC ACID 1 MG TABLET PO SCH (20:51)
[2023-02-11] MEDS: ASPIRIN 81 MG EC TAB PO SCH (20:51)
[2023-02-12] VITALS: BP 100/59
[2023-02-12] MEDS: TRAMADOL HCL 50 MG TABLET PO PRN ×3 (01:38→16:54)
[2023-02-12 03:56] VITALS: BP 92/59
[2023-02-12 04:18] LABS: HEMATOCRIT 30.7 % (42-54); MEAN CORPUSCULAR HEMOGLOBIN 30.9 pg (27.0-33.0); MEAN CORPUSCULAR HGB CONC 33.6 g/dL (32.0-36.0); MEAN CORPUSCULAR VOLUME 92.2 fL (79-99); RED BLOOD CELL COUNT(AUTO) 3.33 MIL/uL (4.50-6.20); RED CELL DISTRIBUTION WIDTH 16.1 % (11.0-15.5)
[2023-02-12 04:33] LABS: ALBUMIN 1.2 g/dL (3.5-5.0); CREATININE 0.7 mg/dL (0.5-1.5); POTASSIUM 4.1 mmol/L (3.5-5.1); TOTAL PROTEIN, SERUM 5.1 g/dL (6.0-8.3)
[2023-02-12 04:35] LABS: WHITE BLOOD COUNT (AUTO) 32.2 K/uL (4.8-10.8)
[2023-02-12] MEDS: DOCUSATE SODIUM 100 MG CAP PO SCH ×3 (06:47→22:10)
[2023-02-12] MEDS: VANCOMYCIN 500MG+NS 100ML 100 ML IV SCH ×3 (06:48→20:12)
[2023-02-12] MEDS: GABAPENTIN 100 MG CAPSULE PO SCH ×3 (06:48→22:10)
[2023-02-12 08:00] VITALS: BP 99/65
[2023-02-12] MEDS: FAMOTIDINE 20MG VIAL IV SCH ×2 (08:59→20:07)
[2023-02-12] MEDS: HEPARIN 5,000 UNIT VIAL SQ SCH ×2 (09:06→20:11)
[2023-02-12] MEDS: LACTULOSE 20 GM/30 ML UDCUP PO PRN (09:25)
[2023-02-12 12:00] VITALS: BP 107/67
[2023-02-12] MEDS: FLUCONAZOLE 100 MG TAB PO SCH (14:22)
[2023-02-12 16:00] VITALS: BP 97/51
[2023-02-12 20:00] VITALS: BP 100/54
[2023-02-12] MEDS: ASPIRIN 81 MG EC TAB PO SCH (20:07)
[2023-02-12] MEDS: FOLIC ACID 1 MG TABLET PO SCH (20:08)
[2023-02-12] MEDS: HYDROMORPHONE 0.5 MG SYG (0.5MG/0.5ML) IVP PRN (20:34)
[2023-02-13] VITALS (7 sets, daily range): BP systolic 102–109; BP diastolic 58–65
[2023-02-13] MEDS: HYDROMORPHONE 0.5 MG SYG (0.5MG/0.5ML) IVP PRN ×4 (01:04→22:58)
[2023-02-13] MEDS: VANCOMYCIN 500MG+NS 100ML 100 ML IV SCH (04:21)
[2023-02-13 04:44] LABS: BASOPHILS % (AUTO) 0.6 % (0.0-5.0); EOSINOPHILS % (AUTO) 5.4 % (0.0-8.0); HEMATOCRIT 31.3 % (42-54); LYMPHOCYTES % (AUTO) 14.1 % (21.0-51.0); MEAN CORPUSCULAR HEMOGLOBIN 30.4 pg (27.0-33.0); MEAN CORPUSCULAR HGB CONC 33.5 g/dL (32.0-36.0); MEAN CORPUSCULAR VOLUME 90.7 fL (79-99); MONOCYTES % (AUTO) 5.9 % (3.0-13.0); NEUTROPHILS % (AUTO) 73.3 % (40.0-77.0); PLATELET COUNT (AUTO) 698 K/uL (130-400); RED BLOOD CELL COUNT(AUTO) 3.45 MIL/uL (4.50-6.20); RED CELL DISTRIBUTION WIDTH 16.1 % (11.0-15.5)
[2023-02-13] MEDS: TRAMADOL HCL 50 MG TABLET PO PRN ×2 (04:46→12:21)
[2023-02-13 04:49] LABS: ALBUMIN 1.3 g/dL (3.5-5.0); CREATININE 0.6 mg/dL (0.5-1.5); POTASSIUM 3.9 mmol/L (3.5-5.1); TOTAL PROTEIN, SERUM 5.2 g/dL (6.0-8.3)
[2023-02-13 05:23] LABS: WHITE BLOOD COUNT (AUTO) 31.7 K/uL (4.8-10.8)
[2023-02-13 06:17] LABS: BASOPHILS % (MANUAL) 1 % (0-2); EOSINOPHILS % (MANUAL) 3 % (1-6); LYMPHOCYTES % (MANUAL) 7 % (22-44); MAN.DIFF COMMENT-IMPRESSION MANUAL DIFFERENTIAL; MONOCYTES % (MANUAL) 3 % (2-9); REACTIVE LYMPHOCYTES 2 % (0-0); SEGMENTED NEUTROPHILS % 84 % (40-70)
[2023-02-13 06:18] LABS: PLATELET MORPHOLOGY COMMENT INCREASED
[2023-02-13] MEDS: GABAPENTIN 100 MG CAPSULE PO SCH ×3 (06:28→22:58)
[2023-02-13] MEDS: DOCUSATE SODIUM 100 MG CAP PO SCH ×3 (06:28→22:59)
[2023-02-13] MEDS: FAMOTIDINE 20MG VIAL IV SCH ×2 (08:29→22:58)
[2023-02-13] MEDS: HEPARIN 5,000 UNIT VIAL SQ SCH ×2 (08:35→23:23)
[2023-02-13] MEDS: VANCOMYCIN 750MG VIAL IVPB SCH ×2 (12:14→22:59)
[2023-02-13] MEDS: FLUCONAZOLE 100 MG TAB PO SCH (14:13)
[2023-02-13] MEDS: FOLIC ACID 1 MG TABLET PO SCH (22:58)
[2023-02-13] MEDS: ASPIRIN 81 MG EC TAB PO SCH (22:58)
[2023-02-14 04:50] VITALS: BP 93/50
[2023-02-14 04:57] LABS: BASOPHILS % (AUTO) 0.7 % (0.0-5.0); EOSINOPHILS % (AUTO) 5.7 % (0.0-8.0); HEMATOCRIT 30.2 % (42-54); LYMPHOCYTES % (AUTO) 14.6 % (21.0-51.0); MEAN CORPUSCULAR HEMOGLOBIN 30.4 pg (27.0-33.0); MEAN CORPUSCULAR HGB CONC 33.4 g/dL (32.0-36.0); MONOCYTES % (AUTO) 7.1 % (3.0-13.0); NEUTROPHILS % (AUTO) 71.3 % (40.0-77.0); PLATELET COUNT (AUTO) 648 K/uL (130-400); RED BLOOD CELL COUNT(AUTO) 3.32 MIL/uL (4.50-6.20); RED CELL DISTRIBUTION WIDTH 15.6 % (11.0-15.5); WHITE BLOOD COUNT (AUTO) 29.5 K/uL (4.8-10.8)
[2023-02-14 05:10] LABS: ALBUMIN 1.3 g/dL (3.5-5.0); CREATININE 0.7 mg/dL (0.5-1.5); POTASSIUM 3.8 mmol/L (3.5-5.1); TOTAL PROTEIN, SERUM 5.2 g/dL (6.0-8.3)
[2023-02-14] MEDS: VANCOMYCIN 750MG VIAL IVPB SCH (05:45)
[2023-02-14] MEDS: GABAPENTIN 100 MG CAPSULE PO SCH ×3 (05:45→23:16)
[2023-02-14] MEDS: DOCUSATE SODIUM 100 MG CAP PO SCH ×3 (05:45→23:15)
[2023-02-14] MEDS: FAMOTIDINE 20MG VIAL IV SCH ×2 (07:59→23:16)
[2023-02-14] MEDS: TRAMADOL HCL 50 MG TABLET PO PRN (07:59)
[2023-02-14 08:00] VITALS: BP 105/63
[2023-02-14] MEDS: HEPARIN 5,000 UNIT VIAL SQ SCH ×2 (10:01→23:32)
[2023-02-14 12:00] VITALS: BP 95/56
[2023-02-14] MEDS: VANCOMYCIN 500MG+NS 100ML 100 ML IV SCH ×2 (13:38→23:13)
[2023-02-14] MEDS: FLUCONAZOLE 100 MG TAB PO SCH (13:38)
[2023-02-14] MEDS ORDERED: VANCOMYCIN PROTOCOL PER PHARMACY IV SCH (15:00)
[2023-02-14] MEDS: LACTULOSE 20 GM/30 ML UDCUP PO SCH ×2 (15:06→23:13)
[2023-02-14 16:00] VITALS: BP 94/55
[2023-02-14] MEDS: ACETAMINOPHEN 325 MG TAB PO PRN (17:40)
[2023-02-14 20:38] VITALS: BP 94/55
[2023-02-14] MEDS: ASPIRIN 81 MG EC TAB PO SCH (23:15)
[2023-02-14] MEDS: FOLIC ACID 1 MG TABLET PO SCH (23:16)
[2023-02-14] MEDS: HYDROMORPHONE 0.5 MG SYG (0.5MG/0.5ML) IVP PRN (23:22)
[2023-02-14 23:26] VITALS: BP 100/59
[2023-02-15] MEDS: HYDROMORPHONE 0.5 MG SYG (0.5MG/0.5ML) IVP PRN ×4 (02:43→22:48)
[2023-02-15 04:20] LABS: BASOPHILS % (AUTO) 0.7 % (0.0-5.0); HEMATOCRIT 30.3 % (42-54); LYMPHOCYTES % (AUTO) 17.1 % (21.0-51.0); MEAN CORPUSCULAR HEMOGLOBIN 30.1 pg (27.0-33.0); MEAN CORPUSCULAR HGB CONC 33.3 g/dL (32.0-36.0); MEAN CORPUSCULAR VOLUME 90.2 fL (79-99); MONOCYTES % (AUTO) 7.1 % (3.0-13.0); NEUTROPHILS % (AUTO) 68.5 % (40.0-77.0); NUCLEATED RED BLOOD CELLS 0.1 % (0.0-0.19); RED BLOOD CELL COUNT(AUTO) 3.36 MIL/uL (4.50-6.20); RED CELL DISTRIBUTION WIDTH 15.9 % (11.0-15.5); WHITE BLOOD COUNT (AUTO) 27.4 K/uL (4.8-10.8)
[2023-02-15 04:22] LABS: PLATELET COUNT (AUTO) 711 K/uL (130-400)
[2023-02-15 04:38] LABS: ALBUMIN 1.2 g/dL (3.5-5.0); CREATININE 0.7 mg/dL (0.5-1.5); POTASSIUM 3.9 mmol/L (3.5-5.1); TOTAL PROTEIN, SERUM 5.2 g/dL (6.0-8.3)
[2023-02-15 04:45] VITALS: BP 95/54
[2023-02-15] MEDS: DOCUSATE SODIUM 100 MG CAP PO SCH ×3 (05:44→22:47)
[2023-02-15] MEDS: VANCOMYCIN 500MG+NS 100ML 100 ML IV SCH ×3 (05:44→20:43)
[2023-02-15] MEDS: GABAPENTIN 100 MG CAPSULE PO SCH ×3 (05:45→22:47)
[2023-02-15] MEDS: TRAMADOL HCL 50 MG TABLET PO PRN (07:47)
[2023-02-15 08:02] VITALS: BP 97/55
[2023-02-15] MEDS: LACTULOSE 20 GM/30 ML UDCUP PO SCH ×2 (08:40→20:43)
[2023-02-15] MEDS: FAMOTIDINE 20MG VIAL IV SCH ×2 (08:40→20:43)
[2023-02-15] MEDS: HEPARIN 5,000 UNIT VIAL SQ SCH ×2 (08:41→20:44)
[2023-02-15 10:50] VITALS: BP 104/56
[2023-02-15] MEDS: FLUCONAZOLE 100 MG TAB PO SCH (14:32)
[2023-02-15 16:10] VITALS: BP 125/56
[2023-02-15 19:23] VITALS: BP 111/65
[2023-02-15] MEDS: FOLIC ACID 1 MG TABLET PO SCH (20:43)
[2023-02-15] MEDS: ASPIRIN 81 MG EC TAB PO SCH (20:43)
[2023-02-16 04:15] VITALS: BP 102/55
[2023-02-16] MEDS: VANCOMYCIN 500MG+NS 100ML 100 ML IV SCH ×3 (05:47→19:47)
[2023-02-16] MEDS: DOCUSATE SODIUM 100 MG CAP PO SCH ×3 (05:48→21:29)
[2023-02-16] MEDS: GABAPENTIN 100 MG CAPSULE PO SCH ×3 (05:48→21:29)
[2023-02-16 08:00] VITALS: BP 101/51
[2023-02-16] MEDS: FAMOTIDINE 20MG VIAL IV SCH ×2 (08:42→19:47)
[2023-02-16] MEDS: LACTULOSE 20 GM/30 ML UDCUP PO SCH ×2 (08:42→19:47)
[2023-02-16] MEDS: HYDROMORPHONE 0.5 MG SYG (0.5MG/0.5ML) IVP PRN ×3 (08:43→19:25)
[2023-02-16 08:50] LABS: BASOPHILS % (AUTO) 0.8 % (0.0-5.0); EOSINOPHILS % (AUTO) 5.1 % (0.0-8.0); HEMATOCRIT 34.6 % (42-54); LYMPHOCYTES % (AUTO) 13.6 % (21.0-51.0); MEAN CORPUSCULAR HEMOGLOBIN 30.1 pg (27.0-33.0); MEAN CORPUSCULAR HGB CONC 32.9 g/dL (32.0-36.0); MEAN CORPUSCULAR VOLUME 91.3 fL (79-99); MONOCYTES % (AUTO) 6.6 % (3.0-13.0); NEUTROPHILS % (AUTO) 73.3 % (40.0-77.0); RED BLOOD CELL COUNT(AUTO) 3.79 MIL/uL (4.50-6.20); RED CELL DISTRIBUTION WIDTH 15.9 % (11.0-15.5); WHITE BLOOD COUNT (AUTO) 26.7 K/uL (4.8-10.8)
[2023-02-16 08:52] LABS: PLATELET COUNT (AUTO) 715 K/uL (130-400)
[2023-02-16] MEDS: HEPARIN 5,000 UNIT VIAL SQ SCH ×2 (08:53→19:48)
[2023-02-16 08:58] LABS: CREATININE 0.8 mg/dL (0.5-1.5); POTASSIUM 3.9 mmol/L (3.5-5.1)
[2023-02-16 09:03] LABS: ALBUMIN 1.2 g/dL (3.5-5.0); TOTAL PROTEIN, SERUM 5.1 g/dL (6.0-8.3)
[2023-02-16 12:00] VITALS: BP 102/61
[2023-02-16] MEDS: FLUCONAZOLE 100 MG TAB PO SCH (15:30)
[2023-02-16 16:00] VITALS: BP 111/70
[2023-02-16] MEDS: ASPIRIN 81 MG EC TAB PO SCH (19:47)
[2023-02-16] MEDS: FOLIC ACID 1 MG TABLET PO SCH (19:47)
[2023-02-16 20:04] VITALS: BP 110/63
[2023-02-16] MEDS: ONDANSETRON 4MG INJ IV PRN (20:34)
[2023-02-17] MEDS: HYDROMORPHONE 0.5 MG SYG (0.5MG/0.5ML) IVP PRN ×3 (03:07→15:16)
[2023-02-17 03:16] VITALS: BP 105/52
[2023-02-17 04:31] LABS: BASOPHILS % (AUTO) 0.7 % (0.0-5.0); EOSINOPHILS % (AUTO) 6.8 % (0.0-8.0); HEMATOCRIT 35.6 % (42-54); LYMPHOCYTES % (AUTO) 16.9 % (21.0-51.0); MEAN CORPUSCULAR HEMOGLOBIN 30.7 pg (27.0-33.0); MEAN CORPUSCULAR HGB CONC 33.7 g/dL (32.0-36.0); MONOCYTES % (AUTO) 6.9 % (3.0-13.0); NEUTROPHILS % (AUTO) 68.2 % (40.0-77.0); PLATELET COUNT (AUTO) 695 K/uL (130-400); RED BLOOD CELL COUNT(AUTO) 3.91 MIL/uL (4.50-6.20); RED CELL DISTRIBUTION WIDTH 16.1 % (11.0-15.5)
[2023-02-17 04:47] LABS: ALBUMIN 1.4 g/dL (3.5-5.0); CREATININE 0.8 mg/dL (0.5-1.5); CRP QUANTITATIVE 40.4 mg/L (0.00-9.0); MAGNESIUM 1.5 mg/dL (1.80-2.40); POTASSIUM 4.3 mmol/L (3.5-5.1); TOTAL PROTEIN, SERUM 5.9 g/dL (6.0-8.3)
[2023-02-17 04:51] LABS: WHITE BLOOD COUNT (AUTO) 31.4 K/uL (4.8-10.8)
[2023-02-17] MEDS: VANCOMYCIN 500MG+NS 100ML 100 ML IV SCH ×3 (05:00→20:49)
[2023-02-17] MEDS: DOCUSATE SODIUM 100 MG CAP PO SCH ×3 (05:00→20:49)
[2023-02-17] MEDS: GABAPENTIN 100 MG CAPSULE PO SCH ×3 (05:00→21:27)
[2023-02-17 05:22] LABS: BASOPHILS % (MANUAL) 1 % (0-2); EOSINOPHILS % (MANUAL) 8 % (1-6); LYMPHOCYTES % (MANUAL) 15 % (22-44); MONOCYTES % (MANUAL) 6 % (2-9); REACTIVE LYMPHOCYTES 1 % (0-0); SEGMENTED NEUTROPHILS % 69 % (40-70)
[2023-02-17 05:23] LABS: MAN.DIFF COMMENT-IMPRESSION MANUAL DIFFERENTIAL
[2023-02-17 05:24] LABS: PLATELET MORPHOLOGY COMMENT INCREASED
[2023-02-17 05:35] LABS: ERYTHROCYTE SEDIMENTATION RATE 20 MM/HR (0-15)
[2023-02-17 08:00] VITALS: BP 100/50
[2023-02-17] MEDS: HEPARIN 5,000 UNIT VIAL SQ SCH ×2 (09:07→20:49)
[2023-02-17] MEDS: FAMOTIDINE 20MG VIAL IV SCH ×2 (09:09→20:48)
[2023-02-17] MEDS: LACTULOSE 20 GM/30 ML UDCUP PO SCH ×2 (09:09→20:49)
[2023-02-17 12:00] VITALS: BP 106/62
[2023-02-17] MEDS: FLUCONAZOLE 100 MG TAB PO SCH (15:14)
[2023-02-17 16:00] VITALS: BP 109/70
[2023-02-17 19:11] VITALS: BP 104/62
[2023-02-17] MEDS: FOLIC ACID 1 MG TABLET PO SCH (20:48)
[2023-02-17] MEDS: ASPIRIN 81 MG EC TAB PO SCH (20:48)
[2023-02-17] MEDS: TRAMADOL HCL 50 MG TABLET PO PRN (22:33)
[2023-02-17 23:02] VITALS: BP_SYST 106; BP_SYST 121; BP_DIAS 50; BP_DIAS 57
[2023-02-18 03:23] VITALS: BP 102/56
[2023-02-18 04:26] LABS: BASOPHILS % (AUTO) 0.8 % (0.0-5.0); EOSINOPHILS % (AUTO) 6.9 % (0.0-8.0); HEMATOCRIT 35.7 % (42-54); MEAN CORPUSCULAR HEMOGLOBIN 30.3 pg (27.0-33.0); MEAN CORPUSCULAR HGB CONC 33.3 g/dL (32.0-36.0); MEAN CORPUSCULAR VOLUME 90.8 fL (79-99); MONOCYTES % (AUTO) 7.3 % (3.0-13.0); NEUTROPHILS % (AUTO) 66.3 % (40.0-77.0); RED BLOOD CELL COUNT(AUTO) 3.93 MIL/uL (4.50-6.20); RED CELL DISTRIBUTION WIDTH 15.7 % (11.0-15.5)
[2023-02-18 04:45] LABS: ALBUMIN 1.3 g/dL (3.5-5.0); CREATININE 0.8 mg/dL (0.5-1.5); POTASSIUM 3.5 mmol/L (3.5-5.1); TOTAL PROTEIN, SERUM 5.4 g/dL (6.0-8.3)
[2023-02-18 05:13] LABS: PLATELET COUNT (AUTO) 748 K/uL (130-400); WHITE BLOOD COUNT (AUTO) 30.5 K/uL (4.8-10.8)
[2023-02-18] MEDS: DOCUSATE SODIUM 100 MG CAP PO SCH ×3 (05:17→22:00)
[2023-02-18] MEDS: VANCOMYCIN 500MG+NS 100ML 100 ML IV SCH (05:19)
[2023-02-18] MEDS: TRAMADOL HCL 50 MG TABLET PO PRN ×3 (05:26→16:54)
[2023-02-18] MEDS: GABAPENTIN 100 MG CAPSULE PO SCH ×3 (06:00→22:10)
[2023-02-18 07:05] VITALS: BP 101/58
[2023-02-18] MEDS: FAMOTIDINE 20MG VIAL IV SCH (09:13)
[2023-02-18] MEDS: LACTULOSE 20 GM/30 ML UDCUP PO SCH ×2 (09:14→22:10)
[2023-02-18] MEDS: HEPARIN 5,000 UNIT VIAL SQ SCH ×2 (09:17→22:14)
[2023-02-18 11:35] VITALS: BP 96/57
[2023-02-18] MEDS: VANCOMYCIN 1G/250ML KIT 250 ML IV SCH ×2 (15:21→22:24)
[2023-02-18] MEDS: FLUCONAZOLE 100 MG TAB PO SCH (15:22)
[2023-02-18 15:35] VITALS: BP 102/59
[2023-02-18 19:43] VITALS: BP 99/55
[2023-02-18] MEDS: ASPIRIN 81 MG EC TAB PO SCH (22:10)
[2023-02-18] MEDS: FOLIC ACID 1 MG TABLET PO SCH (22:10)
[2023-02-18 23:04] VITALS: BP 101/56
[2023-02-19 03:51] VITALS: BP 100/49
[2023-02-19 05:15] LABS: BASOPHILS % (AUTO) 0.8 % (0.0-5.0); HEMATOCRIT 34.2 % (42-54); LYMPHOCYTES % (AUTO) 17.9 % (21.0-51.0); MEAN CORPUSCULAR HEMOGLOBIN 29.8 pg (27.0-33.0); MEAN CORPUSCULAR HGB CONC 33.3 g/dL (32.0-36.0); MEAN CORPUSCULAR VOLUME 89.5 fL (79-99); MONOCYTES % (AUTO) 7.9 % (3.0-13.0); NEUTROPHILS % (AUTO) 65.9 % (40.0-77.0); RED BLOOD CELL COUNT(AUTO) 3.82 MIL/uL (4.50-6.20); RED CELL DISTRIBUTION WIDTH 15.6 % (11.0-15.5)
[2023-02-19 05:16] LABS: PLATELET COUNT (AUTO) 734 K/uL (130-400)
[2023-02-19] MEDS: ACETAMINOPHEN 325 MG TAB PO PRN ×2 (05:28→20:51)
[2023-02-19 05:41] LABS: ALBUMIN 1.3 g/dL (3.5-5.0); CREATININE 0.8 mg/dL (0.5-1.5); POTASSIUM 4.3 mmol/L (3.5-5.1); TOTAL PROTEIN, SERUM 5.5 g/dL (6.0-8.3)
[2023-02-19] MEDS: DOCUSATE SODIUM 100 MG CAP PO SCH ×3 (06:00→20:48)
[2023-02-19] MEDS: GABAPENTIN 100 MG CAPSULE PO SCH ×3 (06:36→20:48)
[2023-02-19 07:05] VITALS: BP 100/53
[2023-02-19] MEDS: LACTULOSE 20 GM/30 ML UDCUP PO SCH ×2 (09:59→20:46)
[2023-02-19] MEDS: VANCOMYCIN 1G/250ML KIT 250 ML IV SCH ×2 (10:00→21:00)
[2023-02-19] MEDS: HEPARIN 5,000 UNIT VIAL SQ SCH ×2 (10:11→20:47)
[2023-02-19 11:05] VITALS: BP 92/53
[2023-02-19] MEDS: FLUCONAZOLE 100 MG TAB PO SCH (15:00)
[2023-02-19 15:05] VITALS: BP 99/61
[2023-02-19 20:32] VITALS: BP 98/60
[2023-02-19] MEDS: ASPIRIN 81 MG EC TAB PO SCH (20:47)
[2023-02-19] MEDS: FOLIC ACID 1 MG TABLET PO SCH (20:47)
[2023-02-20] VITALS (7 sets, daily range): BP systolic 96–120; BP diastolic 56–69
[2023-02-20 05:13] LABS: BASOPHILS % (AUTO) 0.7 % (0.0-5.0); EOSINOPHILS % (AUTO) 6.3 % (0.0-8.0); HEMATOCRIT 32.8 % (42-54); LYMPHOCYTES % (AUTO) 15.7 % (21.0-51.0); MEAN CORPUSCULAR HEMOGLOBIN 29.9 pg (27.0-33.0); MEAN CORPUSCULAR HGB CONC 33.2 g/dL (32.0-36.0); MEAN CORPUSCULAR VOLUME 90.1 fL (79-99); MONOCYTES % (AUTO) 8.6 % (3.0-13.0); NEUTROPHILS % (AUTO) 67.1 % (40.0-77.0); RED BLOOD CELL COUNT(AUTO) 3.64 MIL/uL (4.50-6.20); RED CELL DISTRIBUTION WIDTH 15.5 % (11.0-15.5); WHITE BLOOD COUNT (AUTO) 29.1 K/uL (4.8-10.8)
[2023-02-20 05:30] LABS: ALBUMIN 1.2 g/dL (3.5-5.0); CREATININE 0.9 mg/dL (0.5-1.5); POTASSIUM 3.9 mmol/L (3.5-5.1); TOTAL PROTEIN, SERUM 5.3 g/dL (6.0-8.3)
[2023-02-20 05:34] LABS: PLATELET COUNT (AUTO) 770 K/uL (130-400)
[2023-02-20] MEDS: GABAPENTIN 100 MG CAPSULE PO SCH ×3 (05:44→22:34)
[2023-02-20] MEDS: ACETAMINOPHEN 325 MG TAB PO PRN ×3 (05:46→22:35)
[2023-02-20] MEDS: HEPARIN 5,000 UNIT VIAL SQ SCH ×2 (08:54→21:51)
[2023-02-20] MEDS: LACTULOSE 20 GM/30 ML UDCUP PO SCH ×2 (09:19→21:47)
[2023-02-20] MEDS: VANCOMYCIN 1G/250ML KIT 250 ML IV SCH ×2 (09:19→21:47)
[2023-02-20] MEDS: DOCUSATE SODIUM 100 MG CAP PO SCH ×2 (14:43→22:33)
[2023-02-20] MEDS: FLUCONAZOLE 100 MG TAB PO SCH (14:43)
[2023-02-20] MEDS: ASPIRIN 81 MG EC TAB PO SCH (21:47)
[2023-02-20] MEDS: FOLIC ACID 1 MG TABLET PO SCH (21:47)
[2023-02-21 04:18] VITALS: BP 100/49
[2023-02-21] MEDS: GABAPENTIN 100 MG CAPSULE PO SCH ×3 (06:12→20:18)
[2023-02-21] MEDS: DOCUSATE SODIUM 100 MG CAP PO SCH ×3 (06:12→20:18)
[2023-02-21 08:00] VITALS: BP 100/56
[2023-02-21] MEDS: HEPARIN 5,000 UNIT VIAL SQ SCH ×2 (08:42→20:19)
[2023-02-21] MEDS: LACTULOSE 20 GM/30 ML UDCUP PO SCH ×2 (08:43→20:18)
[2023-02-21 08:45] LABS: BASOPHILS % (AUTO) 0.6 % (0.0-5.0); EOSINOPHILS % (AUTO) 5.2 % (0.0-8.0); HEMATOCRIT 35.3 % (42-54); LYMPHOCYTES % (AUTO) 13.3 % (21.0-51.0); MEAN CORPUSCULAR HEMOGLOBIN 30.3 pg (27.0-33.0); MEAN CORPUSCULAR VOLUME 89.1 fL (79-99); MONOCYTES % (AUTO) 7.2 % (3.0-13.0); NEUTROPHILS % (AUTO) 72.9 % (40.0-77.0); PLATELET COUNT (AUTO) 693 K/uL (130-400); RED BLOOD CELL COUNT(AUTO) 3.96 MIL/uL (4.50-6.20); RED CELL DISTRIBUTION WIDTH 15.2 % (11.0-15.5); WHITE BLOOD COUNT (AUTO) 27.6 K/uL (4.8-10.8)
[2023-02-21 09:11] LABS: ALBUMIN 1.2 g/dL (3.5-5.0); CREATININE 0.9 mg/dL (0.5-1.5); MAGNESIUM 1.6 mg/dL (1.80-2.40); POTASSIUM 4.4 mmol/L (3.5-5.1); TOTAL PROTEIN, SERUM 5.5 g/dL (6.0-8.3)
[2023-02-21] MEDS: ACETAMINOPHEN 325 MG TAB PO PRN ×2 (09:34→15:39)
[2023-02-21] MEDS: VANCOMYCIN 1G/250ML KIT 250 ML IV SCH ×2 (09:39→20:19)
[2023-02-21 12:00] VITALS: BP 111/60
[2023-02-21] MEDS: FLUCONAZOLE 100 MG TAB PO SCH (15:21)
[2023-02-21 16:00] VITALS: BP 106/65
[2023-02-21 20:00] VITALS: BP 99/56
[2023-02-21] MEDS: FOLIC ACID 1 MG TABLET PO SCH (20:18)
[2023-02-21] MEDS: ASPIRIN 81 MG EC TAB PO SCH (20:23)
[2023-02-21 23:15] VITALS: BP 93/46
[2023-02-22 03:48] LABS: BASOPHILS % (AUTO) 0.6 % (0.0-5.0); EOSINOPHILS % (AUTO) 6.8 % (0.0-8.0); HEMATOCRIT 33.6 % (42-54); LYMPHOCYTES % (AUTO) 14.1 % (21.0-51.0); MEAN CORPUSCULAR HEMOGLOBIN 30.6 pg (27.0-33.0); MEAN CORPUSCULAR HGB CONC 34.2 g/dL (32.0-36.0); MEAN CORPUSCULAR VOLUME 89.4 fL (79-99); MONOCYTES % (AUTO) 7.8 % (3.0-13.0); PLATELET COUNT (AUTO) 669 K/uL (130-400); RED BLOOD CELL COUNT(AUTO) 3.76 MIL/uL (4.50-6.20); RED CELL DISTRIBUTION WIDTH 15.3 % (11.0-15.5)
[2023-02-22 04:01] LABS: WHITE BLOOD COUNT (AUTO) 30.1 K/uL (4.8-10.8)
[2023-02-22 04:05] LABS: ALBUMIN 1.2 g/dL (3.5-5.0); CREATININE 0.8 mg/dL (0.5-1.5); MAGNESIUM 1.7 mg/dL (1.80-2.40); POTASSIUM 4.2 mmol/L (3.5-5.1); TOTAL PROTEIN, SERUM 5.4 g/dL (6.0-8.3)
[2023-02-22] MEDS: GABAPENTIN 100 MG CAPSULE PO SCH ×3 (04:46→22:00)
[2023-02-22] MEDS: DOCUSATE SODIUM 100 MG CAP PO SCH ×3 (04:46→22:00)
[2023-02-22 04:47] VITALS: BP 102/57
[2023-02-22 06:17] LABS: BAND NEUTROPHILS % (MANUAL) 2 % (0-2); BASOPHILS % (MANUAL) 2 % (0-2); EOSINOPHILS % (MANUAL) 7 % (1-6); LYMPHOCYTES % (MANUAL) 11 % (22-44); MAN.DIFF COMMENT-IMPRESSION MANUAL DIFFERENTIAL; METAMYELOCYTES % 1 % (0-0); MONOCYTES % (MANUAL) 8 % (2-9); PLATELET MORPHOLOGY COMMENT INCREASED; REACTIVE LYMPHOCYTES 2 % (0-0); SEGMENTED NEUTROPHILS % 67 % (40-70)
[2023-02-22 08:00] VITALS: BP 107/56
[2023-02-22] MEDS: VANCOMYCIN 1G/250ML KIT 250 ML IV SCH ×2 (09:57→21:11)
[2023-02-22] MEDS: LACTULOSE 20 GM/30 ML UDCUP PO SCH ×2 (09:58→21:12)
[2023-02-22] MEDS: BENZONATATE 100 MG CAPSULE PO PRN (09:58)
[2023-02-22] MEDS: HEPARIN 5,000 UNIT VIAL SQ SCH ×2 (10:01→21:13)
[2023-02-22 12:00] VITALS: BP 108/57
[2023-02-22 16:00] VITALS: BP 100/58
[2023-02-22] MEDS: FLUCONAZOLE 100 MG TAB PO SCH (18:15)
[2023-02-22 19:00] VITALS: BP 98/57
[2023-02-22] MEDS: ASPIRIN 81 MG EC TAB PO SCH (21:12)
[2023-02-22] MEDS: FOLIC ACID 1 MG TABLET PO SCH (21:12)
[2023-02-22 23:32] VITALS: BP 104/52
[2023-02-23 03:43] VITALS: BP 108/57
[2023-02-23 05:55] LABS: BASOPHILS % (AUTO) 0.7 % (0.0-5.0); EOSINOPHILS % (AUTO) 7.3 % (0.0-8.0); LYMPHOCYTES % (AUTO) 14.5 % (21.0-51.0); MEAN CORPUSCULAR HEMOGLOBIN 30.4 pg (27.0-33.0); MEAN CORPUSCULAR HGB CONC 34.4 g/dL (32.0-36.0); MEAN CORPUSCULAR VOLUME 88.3 fL (79-99); MONOCYTES % (AUTO) 8.5 % (3.0-13.0); NEUTROPHILS % (AUTO) 68.3 % (40.0-77.0); RED BLOOD CELL COUNT(AUTO) 3.85 MIL/uL (4.50-6.20); RED CELL DISTRIBUTION WIDTH 15.5 % (11.0-15.5); WHITE BLOOD COUNT (AUTO) 28.1 K/uL (4.8-10.8)
[2023-02-23 06:02] LABS: PLATELET COUNT (AUTO) 734 K/uL (130-400)
[2023-02-23 06:29] LABS: ALBUMIN 1.2 g/dL (3.5-5.0); CREATININE 0.8 mg/dL (0.5-1.5); MAGNESIUM 1.6 mg/dL (1.80-2.40); POTASSIUM 3.9 mmol/L (3.5-5.1); TOTAL PROTEIN, SERUM 5.5 g/dL (6.0-8.3)
[2023-02-23] MEDS: DOCUSATE SODIUM 100 MG CAP PO SCH ×3 (06:31→21:49)
[2023-02-23] MEDS: GABAPENTIN 100 MG CAPSULE PO SCH ×3 (06:32→21:49)
[2023-02-23 08:00] VITALS: BP 105/59
[2023-02-23] MEDS: LACTULOSE 20 GM/30 ML UDCUP PO SCH ×2 (09:00→21:03)
[2023-02-23] MEDS: HEPARIN 5,000 UNIT VIAL SQ SCH ×2 (10:10→21:30)
[2023-02-23] MEDS: VANCOMYCIN 1G/250ML KIT 250 ML IV SCH ×2 (10:10→21:04)
[2023-02-23 11:37] VITALS: BP 113/64
[2023-02-23] MEDS ORDERED: VANCOMYCIN 1.25 GM/250 ML BAG 250 ML IV SCH (14:00)
[2023-02-23] MEDS: FLUCONAZOLE 100 MG TAB PO SCH (14:53)
[2023-02-23 16:00] VITALS: BP 109/60
[2023-02-23 20:59] VITALS: BP 103/64
[2023-02-23] MEDS: FOLIC ACID 1 MG TABLET PO SCH (21:03)
[2023-02-23] MEDS: ASPIRIN 81 MG EC TAB PO SCH (21:03)
[2023-02-23 23:56] VITALS: BP 106/55
[2023-02-24 04:21] VITALS: BP 94/57
[2023-02-24] MEDS: DOCUSATE SODIUM 100 MG CAP PO SCH ×3 (06:00→23:12)
[2023-02-24] MEDS: GABAPENTIN 100 MG CAPSULE PO SCH ×3 (06:00→23:12)
[2023-02-24 08:00] VITALS: BP 100/49
[2023-02-24 08:10] LABS: BASOPHILS % (AUTO) 0.8 % (0.0-5.0); EOSINOPHILS % (AUTO) 5.8 % (0.0-8.0); HEMATOCRIT 35.8 % (42-54); LYMPHOCYTES % (AUTO) 13.6 % (21.0-51.0); MEAN CORPUSCULAR HEMOGLOBIN 30.3 pg (27.0-33.0); MEAN CORPUSCULAR HGB CONC 32.7 g/dL (32.0-36.0); MEAN CORPUSCULAR VOLUME 92.7 fL (79-99); MONOCYTES % (AUTO) 9.1 % (3.0-13.0); RED BLOOD CELL COUNT(AUTO) 3.86 MIL/uL (4.50-6.20); RED CELL DISTRIBUTION WIDTH 16.4 % (11.0-15.5)
[2023-02-24 08:11] LABS: PLATELET COUNT (AUTO) 704 K/uL (130-400)
[2023-02-24 08:18] LABS: WHITE BLOOD COUNT (AUTO) 31.5 K/uL (4.8-10.8)
[2023-02-24 08:32] LABS: ALBUMIN 1.4 g/dL (3.5-5.0); CREATININE 0.8 mg/dL (0.5-1.5); MAGNESIUM 1.6 mg/dL (1.80-2.40); POTASSIUM 4.4 mmol/L (3.5-5.1); TOTAL PROTEIN, SERUM 5.7 g/dL (6.0-8.3)
[2023-02-24] MEDS: LACTULOSE 20 GM/30 ML UDCUP PO SCH ×2 (09:00→20:07)
[2023-02-24] MEDS: VANCOMYCIN 1G/250ML KIT 250 ML IV SCH ×2 (09:00→20:08)
[2023-02-24] MEDS: MAGNESIUM OXIDE 400 MG TABLET PO SCH (09:00)
[2023-02-24 09:04] LABS: EOSINOPHILS % (MANUAL) 1 % (1-6); LYMPHOCYTES % (MANUAL) 14 % (22-44); MONOCYTES % (MANUAL) 6 % (2-9); SEGMENTED NEUTROPHILS % 79 % (40-70)
[2023-02-24 09:05] LABS: MAN.DIFF COMMENT-IMPRESSION MANUAL DIFFERENTIAL
[2023-02-24 09:06] LABS: PLATELET MORPHOLOGY COMMENT INCREASED
[2023-02-24 09:26] LABS: INR 1.15 (0.85-1.15); PROTHROMBIN TIME 12.4 SEC (9.6-11.6)
[2023-02-24 09:27] LABS: PARTIAL THROMBOPLASTIN TIME 33.3 SEC (26.3-35.5)
[2023-02-24] MEDS: HEPARIN 5,000 UNIT VIAL SQ SCH ×2 (09:30→20:06)
[2023-02-24 12:00] VITALS: BP 104/56
[2023-02-24] MEDS: FLUCONAZOLE 100 MG TAB PO SCH (15:29)
[2023-02-24 16:00] VITALS: BP 100/61
[2023-02-24 20:00] VITALS: BP 104/53
[2023-02-24] MEDS: FOLIC ACID 1 MG TABLET PO SCH (20:07)
[2023-02-24] MEDS: ASPIRIN 81 MG EC TAB PO SCH (20:07)
[2023-02-25] VITALS: BP 93/51
[2023-02-25 04:00] VITALS: BP 104/56
[2023-02-25 04:45] LABS: BASOPHILS % (AUTO) 0.8 % (0.0-5.0); EOSINOPHILS % (AUTO) 8.5 % (0.0-8.0); HEMATOCRIT 34.4 % (42-54); MEAN CORPUSCULAR HGB CONC 33.1 g/dL (32.0-36.0); MEAN CORPUSCULAR VOLUME 90.5 fL (79-99); MONOCYTES % (AUTO) 7.6 % (3.0-13.0); NEUTROPHILS % (AUTO) 62.6 % (40.0-77.0); RED CELL DISTRIBUTION WIDTH 15.7 % (11.0-15.5); WHITE BLOOD COUNT (AUTO) 28.1 K/uL (4.8-10.8)
[2023-02-25 05:05] LABS: ALBUMIN 1.3 g/dL (3.5-5.0); CREATININE 0.8 mg/dL (0.5-1.5); MAGNESIUM 1.8 mg/dL (1.80-2.40); TOTAL PROTEIN, SERUM 5.6 g/dL (6.0-8.3)
[2023-02-25 05:08] LABS: PLATELET COUNT (AUTO) 743 K/uL (130-400)
[2023-02-25] MEDS: DOCUSATE SODIUM 100 MG CAP PO SCH ×3 (06:38→21:05)
[2023-02-25] MEDS: GABAPENTIN 100 MG CAPSULE PO SCH ×3 (06:38→21:06)
[2023-02-25 08:00] VITALS: BP 95/56
[2023-02-25] MEDS: LACTULOSE 20 GM/30 ML UDCUP PO SCH ×2 (10:07→21:03)
[2023-02-25] MEDS: MAGNESIUM OXIDE 400 MG TABLET PO SCH (10:07)
[2023-02-25] MEDS: VANCOMYCIN 1G/250ML KIT 250 ML IV SCH ×2 (10:07→21:03)
[2023-02-25] MEDS: HEPARIN 5,000 UNIT VIAL SQ SCH ×2 (10:08→21:00)
[2023-02-25 11:49] VITALS: BP 117/64
[2023-02-25] MEDS: FLUCONAZOLE 100 MG TAB PO SCH (13:15)
[2023-02-25 16:00] VITALS: BP 107/61
[2023-02-25 20:00] VITALS: BP 106/60
[2023-02-25] MEDS: FOLIC ACID 1 MG TABLET PO SCH (21:02)
[2023-02-25] MEDS: ASPIRIN 81 MG EC TAB PO SCH (21:02)
[2023-02-26] VITALS: BP 98/54
[2023-02-26 04:00] VITALS: BP 106/50
[2023-02-26 04:36] LABS: BASOPHILS % (AUTO) 0.9 % (0.0-5.0); HEMATOCRIT 34.8 % (42-54); LYMPHOCYTES % (AUTO) 20.9 % (21.0-51.0); MEAN CORPUSCULAR HEMOGLOBIN 30.2 pg (27.0-33.0); MEAN CORPUSCULAR HGB CONC 33.6 g/dL (32.0-36.0); MEAN CORPUSCULAR VOLUME 89.7 fL (79-99); MONOCYTES % (AUTO) 6.8 % (3.0-13.0); NEUTROPHILS % (AUTO) 61.9 % (40.0-77.0); RED BLOOD CELL COUNT(AUTO) 3.88 MIL/uL (4.50-6.20); RED CELL DISTRIBUTION WIDTH 15.5 % (11.0-15.5); WHITE BLOOD COUNT (AUTO) 27.3 K/uL (4.8-10.8)
[2023-02-26 04:51] LABS: ALBUMIN 1.4 g/dL (3.5-5.0); CREATININE 0.8 mg/dL (0.5-1.5); MAGNESIUM 1.8 mg/dL (1.80-2.40); POTASSIUM 3.9 mmol/L (3.5-5.1); TOTAL PROTEIN, SERUM 5.7 g/dL (6.0-8.3)
[2023-02-26 05:10] LABS: PLATELET COUNT (AUTO) 715 K/uL (130-400)
[2023-02-26] MEDS: DOCUSATE SODIUM 100 MG CAP PO SCH ×2 (05:35→13:03)
[2023-02-26] MEDS: GABAPENTIN 100 MG CAPSULE PO SCH ×2 (05:35→13:03)
[2023-02-26 08:00] VITALS: BP 105/65
[2023-02-26] MEDS: VANCOMYCIN 1G/250ML KIT 250 ML IV SCH ×2 (09:53→21:01)
[2023-02-26] MEDS: LACTULOSE 20 GM/30 ML UDCUP PO SCH ×2 (09:53→21:00)
[2023-02-26] MEDS: MAGNESIUM OXIDE 400 MG TABLET PO SCH (09:53)
[2023-02-26] MEDS: HEPARIN 5,000 UNIT VIAL SQ SCH ×2 (09:54→21:07)
[2023-02-26 12:00] VITALS: BP 103/63
[2023-02-26] MEDS: FLUCONAZOLE 100 MG TAB PO SCH (13:03)
[2023-02-26 16:00] VITALS: BP 104/59
[2023-02-26 20:00] VITALS: BP 110/59
[2023-02-26] MEDS: FOLIC ACID 1 MG TABLET PO SCH (21:00)
[2023-02-26] MEDS: ASPIRIN 81 MG EC TAB PO SCH (21:00)
[2023-02-27] VITALS (7 sets, daily range): BP systolic 95–121; BP diastolic 48–70
[2023-02-27 08:07] LABS: EOSINOPHILS % (AUTO) 7.9 % (0.0-8.0); HEMATOCRIT 36.6 % (42-54); LYMPHOCYTES % (AUTO) 16.6 % (21.0-51.0); MEAN CORPUSCULAR HEMOGLOBIN 30.6 pg (27.0-33.0); MEAN CORPUSCULAR HGB CONC 33.3 g/dL (32.0-36.0); MEAN CORPUSCULAR VOLUME 91.7 fL (79-99); MONOCYTES % (AUTO) 7.8 % (3.0-13.0); NEUTROPHILS % (AUTO) 66.3 % (40.0-77.0); RED BLOOD CELL COUNT(AUTO) 3.99 MIL/uL (4.50-6.20); RED CELL DISTRIBUTION WIDTH 15.8 % (11.0-15.5); WHITE BLOOD COUNT (AUTO) 24.4 K/uL (4.8-10.8)
[2023-02-27 08:31] LABS: PLATELET COUNT (AUTO) 785 K/uL (130-400)
[2023-02-27 08:33] LABS: ALBUMIN 1.5 g/dL (3.5-5.0); CREATININE 0.8 mg/dL (0.5-1.5); MAGNESIUM 1.8 mg/dL (1.80-2.40); POTASSIUM 4.2 mmol/L (3.5-5.1)
[2023-02-27] MEDS: MAGNESIUM OXIDE 400 MG TABLET PO SCH (08:52)
[2023-02-27] MEDS: LACTULOSE 20 GM/30 ML UDCUP PO SCH ×2 (08:52→21:05)
[2023-02-27] MEDS: VANCOMYCIN 1G/250ML KIT 250 ML IV SCH (08:52)
[2023-02-27] MEDS: HEPARIN 5,000 UNIT VIAL SQ SCH ×2 (08:53→21:06)
[2023-02-27] MEDS: FLUCONAZOLE 100 MG TAB PO SCH (15:12)
[2023-02-27] MEDS ORDERED: VANCOMYCIN 1.25 GM/250 ML BAG 250 ML IV ONE (21:00)
[2023-02-27] MEDS: FOLIC ACID 1 MG TABLET PO SCH (21:05)
[2023-02-27] MEDS: ASPIRIN 81 MG EC TAB PO SCH (21:05)
[2023-02-28] VITALS (7 sets, daily range): BP systolic 93–148; BP diastolic 51–89
[2023-02-28] MEDS: MAGNESIUM OXIDE 400 MG TABLET PO SCH (09:03)
[2023-02-28] MEDS: LACTULOSE 20 GM/30 ML UDCUP PO SCH ×2 (09:03→21:29)
[2023-02-28] MEDS: VANCOMYCIN 1G/250ML KIT 250 ML IV SCH ×2 (09:03→21:30)
[2023-02-28] MEDS: HEPARIN 5,000 UNIT VIAL SQ SCH ×2 (09:05→21:30)
[2023-02-28] MEDS: FLUCONAZOLE 100 MG TAB PO SCH (14:15)
[2023-02-28] MEDS: ASPIRIN 81 MG EC TAB PO SCH (21:29)
[2023-02-28] MEDS: FOLIC ACID 1 MG TABLET PO SCH (21:29)
[2023-03-01 02:50] VITALS: BP 92/52
[2023-03-01 05:01] LABS: BASOPHILS % (AUTO) 0.8 % (0.0-5.0); EOSINOPHILS % (AUTO) 7.8 % (0.0-8.0); HEMATOCRIT 34.4 % (42-54); LYMPHOCYTES % (AUTO) 18.3 % (21.0-51.0); MEAN CORPUSCULAR HEMOGLOBIN 30.2 pg (27.0-33.0); MEAN CORPUSCULAR HGB CONC 33.1 g/dL (32.0-36.0); MONOCYTES % (AUTO) 7.4 % (3.0-13.0); NEUTROPHILS % (AUTO) 65.2 % (40.0-77.0); RED BLOOD CELL COUNT(AUTO) 3.78 MIL/uL (4.50-6.20); RED CELL DISTRIBUTION WIDTH 15.9 % (11.0-15.5); WHITE BLOOD COUNT (AUTO) 26.1 K/uL (4.8-10.8)
[2023-03-01 05:11] LABS: INR 1.1 (0.85-1.15); PLATELET COUNT (AUTO) 751 K/uL (130-400); PROTHROMBIN TIME 11.9 SEC (9.6-11.6)
[2023-03-01 05:18] LABS: ALBUMIN 1.4 g/dL (3.5-5.0); CREATININE 0.9 mg/dL (0.5-1.5); MAGNESIUM 1.8 mg/dL (1.80-2.40); POTASSIUM 3.6 mmol/L (3.5-5.1); TOTAL PROTEIN, SERUM 5.5 g/dL (6.0-8.3)
[2023-03-01 08:00] VITALS: BP 89/57
[2023-03-01] MEDS: VANCOMYCIN 1G/250ML KIT 250 ML IV SCH (09:22)
[2023-03-01] MEDS: MAGNESIUM OXIDE 400 MG TABLET PO SCH (09:22)
[2023-03-01] MEDS: LACTULOSE 20 GM/30 ML UDCUP PO SCH (09:22)
[2023-03-01] MEDS: HEPARIN 5,000 UNIT VIAL SQ SCH (09:23)
[2023-03-01] MEDS: LACTULOSE 20 GM/30 ML UDCUP PR ONE ×2 (09:23→10:00)
[2023-03-01] MEDS ORDERED: VANCOMYCIN PROTOCOL PER PHARMACY IV SCH (10:00)
[2023-03-01] MEDS ORDERED: IOHEXOL 180 MG/ML 20 ML VIAL ONE (11:15)
[2023-03-01 11:55] VITALS: BP 115/61
[2023-03-01] MEDS ORDERED: LACT PO (14:39)
[2023-03-01] MEDS: FLUCONAZOLE 100 MG TAB PO SCH (15:08)
== END 2023-03-01 17:20 | disposition home or self-care (01) | DRG 853 ==
LOC: EDH 11:25 → EDHIP 11:26 → 4AH 22:39
PROVIDERS: ADMIT Internal Medicine; ATTEND Internal Medicine
PROC: 0W9G3ZZ Drainage of Peritoneal Cavity, Percutaneous Approach (ICD-10-PCS; 2023-01-25)
PROC: 0FT40ZZ Resection of Gallbladder, Open Approach (ICD-10-PCS; principal; 2023-01-27 14:20)
PROC: 0FJ44ZZ Inspection of Gallbladder, Percutaneous Endoscopic Approach (ICD-10-PCS; 2023-01-27 14:20)
PROC: 0W9G3ZZ Drainage of Peritoneal Cavity, Percutaneous Approach (ICD-10-PCS; 2023-02-03)
PROC: 0W9F30Z Drainage of Abdominal Wall with Drainage Device, Percutaneous Approach (ICD-10-PCS; 2023-02-10)
DX: A41.9 Sepsis, unspecified organism (principal); E43 Unspecified severe protein-calorie malnutrition; J18.9 Pneumonia, unspecified organism; D68.9 Coagulation defect, unspecified; I85.10 Secondary esophageal varices without bleeding; Z20.822 Contact with and (suspected) exposure to COVID-19; K80.00 Calculus of gallbladder with acute cholecystitis without obstruction; A08.39 Other viral enteritis; J91.8 Pleural effusion in other conditions classified elsewhere; F10.20 Alcohol dependence, uncomplicated; K80.20 Calculus of gallbladder without cholecystitis without obstruction; E86.0 Dehydration; F14.10 Cocaine abuse, uncomplicated; K70.11 Alcoholic hepatitis with ascites; K76.0 Fatty (change of) liver, not elsewhere classified; E87.6 Hypokalemia; D50.9 Iron deficiency anemia, unspecified; K70.31 Alcoholic cirrhosis of liver with ascites; D75.838 Other thrombocytosis; E83.42 Hypomagnesemia; Z53.31 Laparoscopic surgical procedure converted to open procedure; Z90.81 Acquired absence of spleen; Z74.01 Bed confinement status; Z91.199 Patient's noncompliance with other medical treatment and regimen due to unspecified reason; Z68.20 Body mass index [BMI] 20.0-20.9, adult
CPT/HCPCS: 10030; 36415; 49083; 71045; 74176; 74177; 74178; 74181; 76080; 76700; 76705; 76942; 78226; 80048; 80053; 80076; 80202; 80305; 81001; 82042; 82140; 82306; 82607; 82728; 83540; 83550; 83605; 83630; 83690; 83735; 83883; 83986; 84100; 84145; 84157; 84207; 85007; 85025; 85027; 85610; 85651; 85730; 86038; 86140; 86215; 86235; 86255; 86334; 86701; 86850; 86900; 86901; 86923; 87040; 87046; 87071; 87177; 87205; 87390; 87426; 87804; 87880; 89051; 93005; A5061; A9537; C1729; G0378; J0696; J1100; J1170; J1450; J1644; J1756; J1940; J2001; J2060; J2175; J2185; J2250; J2270; J2405; J2704; J2710; J2795; J3010; J3370; J3475; J3480; J3490; J7030; J7040; J7050; P9045; P9047; Q9963; Q9965; Q9967

== ENCOUNTER 2023-03-07 19:51 | Inpatient (IN) | payer OTHER ==
[~2023-03-07] VITALS: Ht 152.4 cm; Wt 65.8 kg
[~2023-03-07 19:51] MED LIST: LACT PO
[2023-03-07 23:27] LABS: EOSINOPHILS % (AUTO) 9.8 % (0.0-8.0); HEMATOCRIT 36.3 % (42-54); LYMPHOCYTES % (AUTO) 20.1 % (21.0-51.0); MEAN CORPUSCULAR HEMOGLOBIN 29.6 pg (27.0-33.0); MEAN CORPUSCULAR HGB CONC 32.2 g/dL (32.0-36.0); MEAN CORPUSCULAR VOLUME 91.9 fL (79-99); MONOCYTES % (AUTO) 8.4 % (3.0-13.0); NEUTROPHILS % (AUTO) 60.3 % (40.0-77.0); PLATELET COUNT (AUTO) 505 K/uL (130-400); RED BLOOD CELL COUNT(AUTO) 3.95 MIL/uL (4.50-6.20); RED CELL DISTRIBUTION WIDTH 16.5 % (11.0-15.5); WHITE BLOOD COUNT (AUTO) 19.2 K/uL (4.8-10.8)
[2023-03-07 23:35] LABS: CREATININE 0.9 mg/dL (0.5-1.5); POTASSIUM 4.1 mmol/L (3.5-5.1)
[2023-03-07 23:39] LABS: INR 1.06 (0.85-1.15); PROTHROMBIN TIME 11.5 SEC (9.6-11.6)
[2023-03-07 23:45] LABS: TOTAL PROTEIN, SERUM 6.6 g/dL (6.0-8.3)
[2023-03-08] MEDS ORDERED: ALBUMIN (HUMAN) 25% 50 ML IV SCH (00:30)
[2023-03-08] MEDS ORDERED: CEFTRIAXONE 1G VIAL IVPB ONE (00:30)
[2023-03-08] MEDS ORDERED: ONDANSETRON 4MG INJ IV PRN (01:00)
[2023-03-08] MEDS ORDERED: HYDROMORPHONE 1 MG INJ IV PRN (01:00)
[2023-03-08] MEDS ORDERED: ACETAMINOPHEN 325 MG TAB PO PRN ×2 (01:00)
[2023-03-08] MEDS ORDERED: FUROSEMIDE 40MG VIAL IVP SCH (01:00)
[2023-03-08 02:32] LABS: CARBON DIOXIDE 24 mmol/L (21-32); CHLORIDE 105 mmol/L (101-111); CREATININE 0.8 mg/dL (0.5-1.5); GLOMERULAR FILTR. RATE CALC 122 mL/min (>90); GLUCOSE,RANDOM 81 mg/dL (70-105); PHOSPHORUS 4.1 mg/dL (2.5-4.9); POTASSIUM 4.1 mmol/L (3.5-5.1); SODIUM SERUM 138 mmol/L (136-145); UREA NITROGEN, BLOOD 12 mg/dL (7-18)
[2023-03-08 02:46] LABS: APPEARANCE,URINE CLEAR (CLEAR); BILIRUBIN,URINE NEGATIVE (NEGATIVE); COLOR,URINE LIGHT-YELLOW (YELLOW); GLUCOSE, URINE (UA) NEGATIVE (NEGATIVE); KETONES,URINE NEGATIVE (NEGATIVE); LEUKOCYTE ESTERASE ,URINE NEGATIVE Leu/uL (NEGATIVE); NITRATE,URINE NEGATIVE (NEGATIVE); OCCULT BLOOD,URINE NEGATIVE (NEGATIVE); PH,URINE 6.5 (5.0-8.0); PROTEIN,URINE NEGATIVE (NEGATIVE); UROBILINOGEN,URINE 0.2 mg/dL (0.2-1.0)
[2023-03-08] MEDS ORDERED: LACT10SO9 PO (03:18)
[2023-03-08 06:01] LABS: BASOPHILS % (AUTO) 1.1 % (0.0-5.0); EOSINOPHILS % (AUTO) 8.4 % (0.0-8.0); HEMATOCRIT 33.4 % (42-54); LYMPHOCYTES % (AUTO) 21.7 % (21.0-51.0); MEAN CORPUSCULAR HEMOGLOBIN 30.4 pg (27.0-33.0); MEAN CORPUSCULAR HGB CONC 33.2 g/dL (32.0-36.0); MEAN CORPUSCULAR VOLUME 91.5 fL (79-99); MONOCYTES % (AUTO) 6.3 % (3.0-13.0); NEUTROPHILS % (AUTO) 62.1 % (40.0-77.0); PLATELET COUNT (AUTO) 580 K/uL (130-400); RED BLOOD CELL COUNT(AUTO) 3.65 MIL/uL (4.50-6.20); WHITE BLOOD COUNT (AUTO) 20.8 K/uL (4.8-10.8)
[2023-03-08] MEDS: HYDROCODONE/ACETAMINOPHEN 5/325 MG TAB PO PRN ×2 (06:30→10:38)
[2023-03-08] MEDS ORDERED: LIDOCAINE HCL 1% 20 ML VIAL ONE (08:38)
[2023-03-08] MEDS ORDERED: ALBUMIN (HUMAN) 25% 0 ML IV ONE (08:39)
[2023-03-08] MEDS ORDERED: SODIUM BICARB 50MEQ 50ML VIAL 50 ML ONE (08:39)
[2023-03-08] MEDS ORDERED: PANTOPRAZOLE 40 MG TAB DR PO SCH (09:00)
[2023-03-08] MEDS ORDERED: LACTULOSE 20 GM/30 ML UDCUP PO SCH (09:00)
[2023-03-08 10:35] VITALS: BP 98/65
== END 2023-03-08 12:34 | disposition home or self-care (01) | DRG 433 ==
LOC: EDH 19:51 → EDHIP 19:52
PROVIDERS: ADMIT Internal Medicine; ATTEND Internal Medicine
PROC: 0W9G3ZZ Drainage of Peritoneal Cavity, Percutaneous Approach (ICD-10-PCS; principal; 2023-03-08)
DX: K74.60 Unspecified cirrhosis of liver (principal); R18.8 Other ascites; Z20.822 Contact with and (suspected) exposure to COVID-19; D72.829 Elevated white blood cell count, unspecified; Z79.899 Other long term (current) drug therapy; Z90.81 Acquired absence of spleen
CPT/HCPCS: 36415; 49083; 76705; 80048; 80053; 81003; 82140; 82150; 83605; 83690; 83735; 84100; 84145; 85025; 85610; 87040; 87635; C1729; G0378; J0696; J1170; J1940; J3490; P9046

== ENCOUNTER 2023-03-18 11:10 | Emergency (ER) | payer OTHER ==
[~2023-03-18] VITALS: Ht 175.3 cm; Wt 74.8 kg
[2023-03-18 11:13] VITALS: BP 118/77
== END 2023-03-18 12:33 | disposition left against medical advice (07) ==
LOC: EDH 11:10
DX: R68.89 Other general symptoms and signs (principal); Z53.21 Procedure and treatment not carried out due to patient leaving prior to being seen by health care provider
CPT/HCPCS: 99281